=== PATIENT | female | born 1955 | race Caucasian/White ===

== ENCOUNTER → 2021-12-05 | Outpatient (CLI) | payer OTHER ==
--- NOTE | 2021-12-05 13:05 | MM ---
Reason for Exam: Screening (asymptomatic). Patient History: Menarche at age 10. Patient has no children. Postmenopausal. Risk Values: Sera 5 year model risk: 1.9%. NCI Lifetime model risk: 6.2%. Prior Study Comparison: No prior studies available for comparison. Tissue Density: The breast tissue is heterogeneously dense. This may lower the sensitivity of mammography. Findings: Analyzed By CAD. Limited examination due to patient positioning. Calcifications demonstrated within the posterior inferior right breast and inferior medial left breast x2. No suspicious mass within either breast. Overall Assessment: Incomplete: need additional imaging evaluation, BI-RAD 0 Management: Diagnostic Mammogram of both breasts. A clinical breast exam by your physician is recommended on an annual basis and results should be correlated with mammographic findings. [facility] will attempt to contact patient to return for supplemental views and ultrasound if indicated. Electronically signed and approved by: Ace Jj D.O.
--- NOTE | 2021-12-05 13:31 | BD ---
EXAMINATION TYPE: Axial Bone Density DATE OF EXAM: 12/05/2021 COMPARISON: PT IS NEW TO [facility] CLINICAL HISTORY: 66 years year old Female. ICD-10 CODE: M81.0 Osteoporosis Height: 63 Weight: 160 FRAX RISK QUESTIONS: Family History (Parent hip fracture): UNSURE History of Fracture in Adulthood: UNSURE...FALL HAS HAD OPERATION. RISK FACTORS HISTORY OF: Family History of Osteoporosis: UNSURE....POOR HISTORIAN Active: IN WHEEL/CHAIR..NO Postmenopausal woman: 48 Take estrogen and/or progesterone medications: IN PAST ...NONE NOW Lost more than 2 inches in height since high school: UNSURE Frequent falls: YES Poor Health: FAIR Hyperparathyroidism: NO Adrenal Insufficiency: NO MEDICATIONS: Additional Medications: GABAPENTEN, PAIN PILLS, BP MEDS, REFLUX MEDS, BLOOD THINNERS, Additional History: INCONTINENT, UNSTEADY, FALL, COGNITIVE DECLINE EXAM MEASUREMENTS: Bone mineral densitometry was performed using the [employer] System. Bone mineral density as measured about the Lumbar spine is: ----- L1-L4(G/cm2): 1.592 T Score Values are as follows: ----- L1: 3.5 ----- L2: 4.3 ----- L3: 2.6 ----- L4: 3.9 ----- L1-L4: 3.4 Bone mineral density NEW TO [facility] Bone mineral density about the R hip (g/cm2): 0.996 Bone mineral density about the L hip (g/cm2): 0.983 T Score values are as follows: -----R Neck: -0.9 -----L Neck: -0.6 -----R Total: -0.1 -----L Total: -0.2 Bone mineral density NEW TO [facility] FRAX%s: The graph provided illustrates a 8.3% chance for a major osteoporotic fx and a 1.2% chance fo r the hips probability for fx in 10 years time. IMPRESSION: Normal (Values between +1 and -1 indicate normal bone mass). Consider repeating this study in 5 year s or sooner if there is some new clinical indication. NOTE: T-SCORE=SD OF THE YOUNG ADULT MEAN.
--- NOTE | 2021-12-05 14:22 | MM ---
Reason for Exam: Additional evaluation requested from abnormal screening. Patient History: Menarche at age 10. Patient has no children. Postmenopausal. Risk Values: Sera 5 year model risk: 1.9%. NCI Lifetime model risk: 6.2%. Tissue Density: The breast tissue is heterogeneously dense. This may lower the sensitivity of mammography. Findings: Analyzed By CAD. The calcifications demonstrated within the posterior right breast correspond to skin calcifications and benign. Grouped fine pleomorphic calcifications within the left breast posterior depth lower inner quadrant. Additional calcifications within the left breast middle depth with round morphology and likely benign. Left breast ultrasound in antiradial and radial scan of the 6:00 position 9 cm from the nipple demonstrates only a few calcifications. No solid mass identified. Overall Assessment: Suspicious, BI-RAD 4 Management: Stereotactic Core Biopsy of the left breast. A clinical breast exam by your physician is recommended on an annual basis and results should be correlated with mammographic findings. This exam should not preclude additional follow-up of suspicious palpable abnormalities. Results were given to the patient verbally at the time of exam. Electronically signed and approved by: Ace Jj D.O.
--- NOTE | 2021-12-05 14:55 | USB ---
Reason for Exam: Additional evaluation requested from abnormal screening. Patient History: Menarche at age 10. Patient has no children. Postmenopausal. Risk Values: Sera 5 year model risk: 1.9%. NCI Lifetime model risk: 6.2%. Technique: Method: Targeted. Electronically signed and approved by: Ace Jj D.O.
== END | disposition home or self-care (01) ==
LOC: EEVIPCON 11:40 → RADMAMWWP 11:46
PROVIDERS: ATTEND Family Medicine
DX: Z12.31 Encounter for screening mammogram for malignant neoplasm of breast (principal); M81.0 Age-related osteoporosis without current pathological fracture; Z78.0 Asymptomatic menopausal state
CPT/HCPCS: 77062; 77066; 77067; 77080

== ENCOUNTER → 2021-12-06 | Outpatient (CLI) | payer OTHER ==
--- NOTE | 2021-12-06 16:39 | CTL ---
EXAMINATION TYPE: CT Low Dose Lung DATE OF EXAM ORDERED: 12/06/2021 HISTORY: Personal tobacco use. Lung cancer screening CT DLP: 96.[address] CTDI: 3.3 mGy Automated exposure control for dose reduction was used. SCREENING VISIT: Initial COMPARISON: None TECHNIQUE: Low dose computed tomography scan was performed through the chest at 1 mm thick sections a nd reconstructed images in the coronal plane at [address] DIAGNOSTIC QUALITY: Satisfactory FINDINGS: LUNG NODULES: Present, detailed below: 1. There is a 0.4 cm nodule in the periphery of the posterior lateral left upper lung field, series 4 image 58. LUNGS: COPD: Severity: None Fibrosis: Severity: None Lymph nodes: None Other findings: None RIGHT PLEURAL SPACE: Effusion: None Calcification: None Thickening: None Pneumothorax: None LEFT PLEURAL SPACE: Effusion: None Calcification: None Thickening: None Pneumothorax: None HEART: Heart Size: Normal Coronary calcification: Very minimal Pericardial effusion: None OTHER FINDINGS: Upper abdomen: Normal Bony thorax: Normal Supraclavicular region: Normal Other: Ascending thoracic aorta at the level the main pulmonary artery measures 4.4 cm. The main pul monary artery at the bifurcation measures 3.2 cm. IMPRESSION: Punctate nodule left upper lung field. FOLLOW UP CT CHEST RECOMMENDATION: Low-dose CT chest one year. CT LUNG RAD: Lung-Rad 2 Benign Appearance or Behavior
== END | disposition home or self-care (01) ==
LOC: RADCTMAIN 13:13
PROVIDERS: ATTEND Family Medicine
DX: Z12.2 Encounter for screening for malignant neoplasm of respiratory organs (principal); R91.1 Solitary pulmonary nodule; Z87.891 Personal history of nicotine dependence
CPT/HCPCS: 71271

== ENCOUNTER → 2022-04-24 | Outpatient (CLI) | payer OTHER ==
--- NOTE | 2022-04-24 14:09 | CT ---
EXAMINATION TYPE: CT abdomen pelvis w con DATE OF EXAM: 04/24/2022 COMPARISON: None HISTORY: Nausea with vomiting. Patient poor historian. CT DLP: 1551.1 mGycm Automated exposure control for dose reduction was used. CONTRAST: CT scan of the abdomen pelvis is performed with IV Contrast, patient injected with 70ml mL of Isovue 300. FINDINGS- exam limited by artifact. LUNG BASES- heart size is prominent. Calcification in the aortic valve are present. LIVER/GB- factory limits assessment of liver. Postcholecystectomy changes seen. PANCREAS- No gross abnormality is seen. SPLEEN- No gross abnormality is seen. ADRENALS- No gross abnormality is seen. KIDNEYS/BLADDER- no hydronephrosis nephrolithiasis or renal mass. BOWEL- nonspecific as there are no obstruction. There is mild thickening of the wall of the distal r ight colon cecum. LYMPH NODES- No greater than 1cm abdominal or pelvic lymph nodes are appreciated. OSSEOUS STRUCTURES- hypertrophic and degenerative changes of the spine. Arthropathy of the hips. OTHER- there is calcification in the uterine body which may be on the basis of fibroid. IMPRESSION- 1. There is mild thickening of the wall of the distal right colon and cecum which could be on the bas is of incomplete distention rather than a mild colitis or mucosal lesion. No surrounding inflammatory changes. Correlate with colonoscopy as clinically warranted.
== END | disposition home or self-care (01) ==
LOC: RADCTMAIN 11:29
PROVIDERS: ATTEND Emergency Medicine
DX: K63.89 Other specified diseases of intestine (principal); R11.2 Nausea with vomiting, unspecified
CPT/HCPCS: 82565; 84520; 74177; 36415; Q9967 ×2

== ENCOUNTER → 2022-07-02 | Outpatient (CLI) | payer OTHER ==
--- NOTE | 2022-07-02 13:57 | MM ---
Reason for Exam: Follow-up at short interval from prior study. Last screening mammogram was performed 7 month(s) ago. Patient History: Menarche at age 10. Patient has no children. Postmenopausal. Maternal grandmother had breast cancer. Risk Values: Sera 5 year model risk: 1.9%. NCI Lifetime model risk: 5.9%. Tissue Density: The breast tissue is heterogeneously dense. This may lower the sensitivity of mammography. Findings: Analyzed By CAD. Stable benign calcifications noted. Prior stereotactic core biopsy seen with microclip marker is in place. No evidence for mass or distortion. Overall Assessment: Benign, BI-RAD 2 Management: Screening Mammogram of both breasts in 1 year. A clinical breast exam by your physician is recommended on an annual basis and results should be correlated with mammographic findings. This exam should not preclude additional follow-up of suspicious palpable abnormalities. Results were given to the patient verbally at the time of exam. Electronically signed and approved by: Georgi Torres M.D. Radiologis
== END | disposition home or self-care (01) ==
LOC: RADMAMWWP 13:14
PROVIDERS: ATTEND Emergency Medicine
DX: R92.1 Mammographic calcification found on diagnostic imaging of breast (principal); Z78.0 Asymptomatic menopausal state; Z80.3 Family history of malignant neoplasm of breast
CPT/HCPCS: 77062; 77066

== ENCOUNTER 2023-03-07 20:18 | Emergency (ER) | payer OTHER ==
[2023-03-07 20:56] VITALS: RESP 18
--- NOTE | 2023-03-07 21:29 | ED ---
General Adult HPI - General Source: patient, RN notes reviewed Mode of arrival: ambulatory Limitations: no limitations <Patti Peralta - Last Filed: 03/07/23 21:37> - General Source: patient, RN notes reviewed Mode of arrival: wheelchair Limitations: no limitations <Velvet Champion - Last Filed: 03/11/23 19:50> - General Chief complaint: Recheck/Abnormal Lab/Rx Stated complaint: Bilateral leg pain Time Seen by Provider: 03/07/23 21:37 - History of Present Illness Initial comments: 68 -year-old female presents to the emergency department for chief complaint of bilateral lower extremity pain. This seems to be a chronic issue for her. She states that this has come back 3 days ago. Patient is worse with walking. (Patti Peralta) This is a 68-year-old female who presents to the emergency department for bilateral lower extremity pain. States that this is a chronic and ongoing issue for her, however it is gotten much worse over the last 3 days. Describes the pain as sharp pinpricks. The patient states that she is largely nonambulatory. This has been an issue for almost 2 years since she had a hernia surgery. She is taking Carver for her pain, which has not been effective over the last few days. Denies any injuries. (Velvet Champion) - Related Data Allergies Allergy/AdvReac Type Severity Reaction Status Date / Time No Known Allergies Allergy Verified 03/07/23 20:55 Review of Systems ROS Other: All systems not noted in ROS Statement are negative. <Patti Peralta - Last Filed: 03/07/23 21:37> ROS Other: All systems not noted in ROS Statement are negative. <Velvet Chapmion - Last Filed: 03/11/23 19:50> ROS Statement: Those systems with pertinent positive or pertinent negative responses have been documented in the HPI. Past Medical History Past Medical History: Hypertension History of Any Multi-Drug Resistant Organisms: None Reported Past Surgical History: Appendectomy, Cholecystectomy, Hernia Repair Additional Past Surgical History / Comment(s): neck surgery Past Psychological History: No Psychological Hx Reported Smoking Status: Never smoker Past Alcohol Use History: None Reported Past Drug Use History: None Reported <Patti Peralta - Last Filed: 03/07/23 21:37> General Exam Limitations: no limitations <Patti Peralta - Last Filed: 03/07/23 21:37> Limitations: no limitations General appearance: alert, in no apparent distress Head exam: Present: atraumatic, normocephalic, normal inspection Respiratory exam: Present: normal lung sounds bilaterally. Absent: respiratory distress, wheezes, rales, rhonchi, stridor Cardiovascular Exam: Present: regular rate, normal rhythm, normal heart sounds. Absent: systolic murmur, diastolic murmur, rubs, gallop, clicks Extremities exam: Present: other (The bilateral lower extremities beginning at around the mid tib-fib and spreading distally are cool with nonpalpable pulses. Delayed capillary refill. Decreased sensation bilaterally.) Neurological exam: Present: alert, oriented X3, CN II-XII intact Psychiatric exam: Present: normal affect, normal mood Skin exam: Present: dry, intact, normal color. Absent: rash <Velvet Champion - Last Filed: 03/11/23 19:50> - General Exam Comments Initial Comments: Visual Physical Exam Vital signs reviewed General: Well-appearing, nontoxic, no acute distress. Head: Normocephalic, atraumatic Eyes: PERRLA, EOMI ENT: Airway patent Chest: Nonlabored breathing Skin: No visual rash, normal skin tone Neuro: Alert and oriented 3 Musculoskeletal: No gross abnormalities (Patti Peralta) Course Vital Signs 03/07/23 03/08/23 03/08/23 20:49 01:55 05:27 Temperature 97.5 F L 97.9 F Pulse Rate 91 80 60 Respiratory 18 18 18 Rate Blood Pressure 149/62 135/78 111/72 O2 Sat by Pulse 96 97 97 Oximetry Medical Decision Making <Patti Peralta - Last Filed: 03/07/23 21:37> - Lab Data Result diagrams: 03/07/23 22:11 03/07/23 22:11 - Radiology Data Radiology results: report reviewed, image reviewed <Velvet Champion - Last Filed: 03/11/23 19:50> - Medical Decision Making Quick note preformed by Patti Peralta PA-C (Patti Peralta) This is a 68-year-old female who presents to the emergency department for bilateral lower extremity pain. Was pt. sent in by a medical professional or institution? @ -No Did you speak to anyone other than the patient for history? @ -No Did you review nursing and triage notes? @ -I disagree with the aspect of the pain being all over. Patient states that it is in her legs. Were old charts reviewed? @ -No Differential Diagnosis? @ -Differential Leg Pain: Leg fracture, leg sprain, DVT, PVD, arterial insufficiency, iliac artery aneurysm, cellulitis, compartment syndrome, tendinopathy, nerve entrapment, piriformis syndrome, osteoarthritis, rhabdomyolysis, myositis, cramping from an electrolyte imbalance, this is not meant to be an all inclusive list. EKG interpreted by me (3pts min.)? @ -Not obtained X-rays interpreted by me (1pt min.)? @ -Not obtained CT interpreted by me (1pt min.)? @ -CTA of the bilateral LE obtained. My interpretation identifies no occlusion to the iliac, femoral, or popliteal arteries. U/S interpreted by me (1pt. min.)? @ -Not obtained What testing was considered but not performed? (CT, X-rays, U/S, labs)? Why? @ -None What meds were considered but not given? Why? @ -None Did you discuss the management of the patient with other professionals? @ -Yes, Dr. Montes, who advised that the patient could follow up outpatient and that this is likely all chronic. Did you reconcile home meds? @ -No Was smoking cessation discussed for >3mins.? @ -No Was critical care preformed (if so, how long)? @ -No Were there social determinants of health that impacted care today? How? (Homelessness, low income, unemployed, alcoholism, drug addiction, transportation, low edu. Level, literacy, decrease access to med. care, intermediate, rehab)? @ -No Was there de-escalation of care discussed even if they declined? (Discuss DNR or withdrawal of care, Hospice)? @ -No What co-morbidities impacted this encounter? (DM, HTN, Smoking, COPD, CAD, Cancer, CVA, Hep., AIDS, mental health diagnosis, sleep apnea, morbid obesity)? @ -HTN Was patient admitted / discharged? @ -Discharged. Lab work obtained and found to be unremarkable. Patient's symptoms were well controlled in the emergency department. On exam the distal most aspect of the bilateral lower extremities and her feet were cooler than the rest of her extremities and pulses could not be found on palpation or with the doppler. CT angiogram of the bilateral lower extremities was obtained. This identified symmetric decreased opacification of the bilateral lower extremities past the mid calf which likely relates to phase of contrast. 3 vessel occlusive thrombus is possible, though less likely. They recommended repeat imaging with and without contrast with delayed imaging. Case discussed with Dr. Montes, vascular surgery. She advised that this is likely all chronic in nature and the patient can follow-up on an outpatient basis. This was discussed with the patient who expresses understanding, and she was discharged home in stable condition. Undiagnosed new problem with uncertain prognosis? @ -None Drug Therapy requiring intensive monitoring for toxicity (Heparin, Nitro, Insulin, Cardizem)? @ -None Were any procedures done? @ -None Diagnosis/symptom? @ -Bilateral LE pain, PAD Acute, or Chronic, or Acute on Chronic? @ -Chronic Uncomplicated (without systemic symptoms) or Complicated (systemic symptoms)? @ -Uncomplicated Side effects of treatment? @ -None Exacerbation, Progression, or Severe Exacerbation] @ -Exacerbation Poses a threat to life or bodily function? @ -This will depend on how this progresses. Return precautions reviewed in depth, the patient is instructed to return to the emergency department with any new, worsening, or concerning symptoms. Patient verbalized understanding. This case was discussed in detail with the attending ED physician, Dr. Demarco. Presentation, findings, and treatment plan discussed in detail as well. (Velvet Champion) - Lab Data Lab Results 03/07/23 03/07/23 03/07/23 Range/Units 22:11 22:11 22:11 WBC 8.3 (3.8-10.6) k/uL RBC 4.69 (3.80-5.40) m/uL Hgb 12.8 (11.4-16.0) gm/dL Hct 40.8 (34.0-46.0) % MCV 87.0 (80.0-100.0) fL MCH 27.2 (25.0-35.0) pg MCHC 31.3 (31.0-37.0) g/dL RDW 13.9 (11.5-15.5) % Plt Count 231 (150-450) k/uL MPV 7.7 Neutrophils % 57 % Lymphocytes % 33 % Monocytes % 6 % Eosinophils % 2 % Basophils % 0 % Neutrophils # 4.7 (1.3-7.7) k/uL Lymphocytes # 2.8 (1.0-4.8) k/uL Monocytes # 0.5 (0-1.0) k/uL Eosinophils # 0.2 (0-0.7) k/uL Basophils # 0.0 (0-0.2) k/uL Hypochromasia Slight Sodium 137 (137-145) mmol/L Potassium 4.2 (3.5-5.1) mmol/L Chloride 107 (98-107) mmol/L Carbon Dioxide 20 L (22-30) mmol/L Anion Gap 10 mmol/L BUN 26 H (7-17) mg/dL Creatinine 0.70 (0.52-1.04) mg/dL Est GFR (CKD-EPI)AfAm >90 (>60 ml/min/1.73 sqM) Est GFR (CKD-EPI)NonAf 88 (>60 ml/min/1.73 sqM) Glucose 96 (74-99) mg/dL Plasma Lactic Acid Harjinder 1.1 (0.7-2.0) mmol/L Calcium 8.7 (8.4-10.2) mg/dL Total Bilirubin 0.4 (0.2-1.3) mg/dL AST 19 (14-36) U/L ALT 14 (4-34) U/L Alkaline Phosphatase 91 (38-126) U/L Creatine Kinase 31 (30-135) U/L C-Reactive Protein 1.4 H (<1.0) mg/dL Total Protein 6.3 (6.3-8.2) g/dL Albumin 3.6 (3.5-5.0) g/dL Influenza Type A (PCR) (Not Detectd) Influenza Type B (PCR) (Not Detectd) RSV (PCR) (Not Detectd) SARS-CoV-2 (PCR) (Not Detectd) 03/07/23 Range/Units 22:11 WBC (3.8-10.6) k/uL RBC (3.80-5.40) m/uL Hgb (11.4-16.0) gm/dL Hct (34.0-46.0) % MCV (80.0-100.0) fL MCH (25.0-35.0) pg MCHC (31.0-37.0) g/dL RDW (11.5-15.5) % Plt Count (150-450) k/uL MPV Neutrophils % % Lymphocytes % % Monocytes % % Eosinophils % % Basophils % % Neutrophils # (1.3-7.7) k/uL Lymphocytes # (1.0-4.8) k/uL Monocytes # (0-1.0) k/uL Eosinophils # (0-0.7) k/uL Basophils # (0-0.2) k/uL Hypochromasia Sodium (137-145) mmol/L Potassium (3.5-5.1) mmol/L Chloride (98-107) mmol/L Carbon Dioxide (22-30) mmol/L Anion Gap mmol/L BUN (7-17) mg/dL Creatinine (0.52-1.04) mg/dL Est GFR (CKD-EPI)AfAm (>60 ml/min/1.73 sqM) Est GFR (CKD-EPI)NonAf (>60 ml/min/1.73 sqM) Glucose (74-99) mg/dL Plasma Lactic Acid Harjinder (0.7-2.0) mmol/L Calcium (8.4-10.2) mg/dL Total Bilirubin (0.2-1.3) mg/dL AST (14-36) U/L ALT (4-34) U/L Alkaline Phosphatase (38-126) U/L Creatine Kinase (30-135) U/L C-Reactive Protein (<1.0) mg/dL Total Protein (6.3-8.2) g/dL Albumin (3.5-5.0) g/dL Influenza Type A (PCR) Not Detected (Not Detectd) Influenza Type B (PCR) Not Detected (Not Detectd) RSV (PCR) Not Detected (Not Detectd) SARS-CoV-2 (PCR) Not Detected (Not Detectd) Disposition <Patti Peralta - Last Filed: 03/07/23 21:37> Is patient prescribed a controlled substance at d/c from ED?: No <Velvet Champion - Last Filed: 03/11/23 19:50> Clinical Impression: Bilateral leg pain, PAD (peripheral artery disease) Disposition: HOME SELF-CARE Instructions (If sedation given, give patient instructions): Peripheral Artery Disease (ED) Additional Instructions: Return to the emergency department with any new, worsening, or concerning symptoms. Contact Dr. Montes, vascular surgery, as listed below this morning for a follow up appointment. Referrals: Jatinder Garcia MD [Primary Care Provider] - 1-2 days Samantha Montes DO [STAFF PHYSICIAN] - 1-2 days
[2023-03-07 23:15] LABS: Basophils % (A) 0 %; Eosinophils # (A) 0.2 k/uL (0-0.7); Eosinophils % (A) 2 %; HCT 40.8 % (34.0-46.0); HGB 12.8 gm/dL (11.4-16.0); Hypochromasia Slight; Lymphocytes # (A) 2.8 k/uL (1.0-4.8); Lymphocytes % (A) 33 %; MCH 27.2 pg (25.0-35.0); MCHC 31.3 g/dL (31.0-37.0); Mean Platelet Volume 7.7; Monocytes # (A) 0.5 k/uL (0-1.0); Monocytes % (A) 6 %; Neutrophils # (A) 4.7 k/uL (1.3-7.7); Neutrophils % (A) 57 %; Platelet Count 231 k/uL (150-450); RBC 4.69 m/uL (3.80-5.40); RDW 13.9 % (11.5-15.5); WBC 8.3 k/uL (3.8-10.6)
[2023-03-07 23:27] LABS: ALT 14 U/L (4-34); AST 19 U/L (14-36); African American GFR (CKD) >90 (>60 ml/min/1.73 sqM); Albumin 3.6 g/dL (3.5-5.0); Alkaline Phosphatase 91 U/L (38-126); Anion Gap 10 mmol/L; Blood Urea Nitrogen 26 mg/dL (7-17); C Reactive Protein 1.4 mg/dL (<1.0); Calcium 8.7 mg/dL (8.4-10.2); Carbon Dioxide 20 mmol/L (22-30); Chloride 107 mmol/L (98-107); Creatine Kinase 31 U/L (30-135); Glucose 96 mg/dL (74-99); Non-African American GFR(CKD) 88 (>60 ml/min/1.73 sqM); Potassium 4.2 mmol/L (3.5-5.1); Sodium 137 mmol/L (137-145); Total Bilirubin 0.4 mg/dL (0.2-1.3); Total Protein 6.3 g/dL (6.3-8.2)
[2023-03-08] MEDS ORDERED: MORPHINE SULFATE 4 MG/ML SYRINGE IVP STA (01:59)
[2023-03-08] MEDS ORDERED: KETOROLAC 15 MG/ML 1 ML VIAL IVP STA (01:59)
--- NOTE | 2023-03-08 04:29 | CT ---
EXAM: CT Angiography Pelvis With Runoff to the Bilateral Lower Extremities With Intravenous Contrast CLINICAL HISTORY: ITS.REASON CT Reason: Cold and pulseless feet bilaterally TECHNIQUE: Axial computed tomographic angiography images of the pelvis and bilateral lower extremities with intravenous contrast. CTDI is 52.9 mGy and DLP is 1437 mGy-cm. This CT exam was performed using one or more of the following dose reduction techniques: automated exposure control, adjustment of the mA and/or kV according to patient size, and/or use of iterative reconstruction technique. MIP reconstructed images were created and reviewed. COMPARISON: No relevant prior studies available. FINDINGS: VASCULATURE: Right iliac arteries: No acute findings. No occlusion or significant stenosis. Right femoral/popliteal arteries: No acute findings. No occlusion or significant stenosis. Right calf/foot arteries: Not visualized past the mid calf. Left iliac arteries: No acute findings. No occlusion or significant stenosis. Left femoral/popliteal arteries: No acute findings. No occlusion or significant stenosis. Left calf/foot arteries: Not visualized past the mid calf. PELVIS: Bowel: Unremarkable. No obstruction. No mucosal thickening. Appendix: No findings to suggest acute appendicitis. Bladder: Diffuse bladder wall thickening with adjacent stranding. Findings can be seen with cystitis. Consider correlation with laboratory values. Reproductive: Multiple calcified fibroids within the uterus. PELVIS and LOWER EXTREMITIES: Intraperitoneal space: Unremarkable. No significant fluid collection. No free air. Bones/joints: Degenerative changes in the spine. No acute fracture. No dislocation. Soft tissues: Unremarkable. Lymph nodes: Unremarkable. No enlarged lymph nodes. IMPRESSION: 1. Diffuse bladder wall thickening with adjacent stranding. Findings can be seen with cystitis. Consider correlation with laboratory values. 2. Symmetric decreased opacification of the bilateral lower extremities past the mid calf which likely relates to phase of contrast. Three- vessel occlusive thrombus is possible, though less likely. Recommend repeat imaging with and without contrast with delayed imaging.
[2023-03-08] MEDS ORDERED: HYDROmorphone 1 MG/ML 1 ML SYRINGE IVP STA (04:56)
[2023-03-08 05:49] VITALS: BP 111/72; PULSE 60; TEMP 97.9
== END 2023-03-08 07:07 | disposition home or self-care (01) ==
LOC: EC 20:18
DX: M79.605 Pain in left leg (principal); M79.604 Pain in right leg; I73.9 Peripheral vascular disease, unspecified; I10 Essential (primary) hypertension; Z20.822 Contact with and (suspected) exposure to COVID-19
CPT/HCPCS: 36415; 80053; 82550; 83605; 85025; 86140; 87636; 73706; 99284; 96374; 96375 ×2; J2270; J1170; J1885; Q9967

== ENCOUNTER 2023-04-02 22:47 | Emergency (ER) | payer OTHER ==
[2023-04-02 23:12] VITALS: TEMP 97.5
[2023-04-03 00:50] LABS: Basophils % (A) 0 %; Eosinophils # (A) 0.2 k/uL (0-0.7); Eosinophils % (A) 3 %; HCT 40.7 % (34.0-46.0); HGB 12.5 gm/dL (11.4-16.0); Hypochromasia Slight; Lymphocytes # (A) 2.2 k/uL (1.0-4.8); Lymphocytes % (A) 29 %; MCH 26.9 pg (25.0-35.0); MCHC 30.7 g/dL (31.0-37.0); MCV 87.6 fL (80.0-100.0); Mean Platelet Volume 7.2; Monocytes # (A) 0.4 k/uL (0-1.0); Monocytes % (A) 5 %; Neutrophils # (A) 4.7 k/uL (1.3-7.7); Neutrophils % (A) 62 %; Platelet Count 233 k/uL (150-450); RBC 4.64 m/uL (3.80-5.40); RDW 14.1 % (11.5-15.5); WBC 7.6 k/uL (3.8-10.6)
[2023-04-03 01:07] LABS: ALT 12 U/L (4-34); AST 18 U/L (14-36); African American GFR (CKD) >90 (>60 ml/min/1.73 sqM); Albumin 3.8 g/dL (3.5-5.0); Alkaline Phosphatase 122 U/L (38-126); Anion Gap 9 mmol/L; Blood Urea Nitrogen 18 mg/dL (7-17); Calcium 8.8 mg/dL (8.4-10.2); Carbon Dioxide 23 mmol/L (22-30); Chloride 106 mmol/L (98-107); Glucose 98 mg/dL (74-99); Non-African American GFR(CKD) 78 (>60 ml/min/1.73 sqM); Potassium 4.1 mmol/L (3.5-5.1); Sodium 138 mmol/L (137-145); Total Bilirubin 0.5 mg/dL (0.2-1.3); Total Protein 6.5 g/dL (6.3-8.2)
[2023-04-03 01:16] LABS: NT-Pro-B-Type Natriuretic Pept 2280 pg/mL
[2023-04-03] MEDS ORDERED: FUROSEMIDE 40 MG TAB PO STA (05:36)
--- NOTE | 2023-04-03 05:47 | ED ---
Extremity Problem HPI - General Chief complaint: Extremity Problem,Nontraumatic Stated complaint: leg swelling leg pain Time Seen by Provider: 04/03/23 05:28 Source: patient Mode of arrival: ambulatory Limitations: no limitations - History of Present Illness Initial comments: Reports that she was advised to stop taking her Lasix due to it being hard on h er kidney so she hasn't taken it she's noted that her legs are more swollen than usual. No signs of chest pain palpitations or shortness of breath MD Complaint: extremity pain, extremity swelling -: days(s) Location: bilateral lower extremity History of Same: Yes Radiation: none Quality: aching Consistency: constant Associated Symptoms: denies other symptoms - Related Data Previous Rx's Medication Instructions Recorded Furosemide [Lasix] 20 mg PO DAILY #7 tablet 04/03/23 Allergies Allergy/AdvReac Type Severity Reaction Status Date / Time Penicillins AdvReac Unknown Verified 04/02/23 23:06 Childhood Review of Systems ROS Statement: Those systems with pertinent positive or pertinent negative responses have been documented in the HPI. ROS Other: All systems not noted in ROS Statement are negative. Past Medical History Past Medical History: Heart Failure, Hypertension History of Any Multi-Drug Resistant Organisms: None Reported Past Surgical History: Appendectomy, Cholecystectomy, Hernia Repair Additional Past Surgical History / Comment(s): neck surgery Past Psychological History: No Psychological Hx Reported Smoking Status: Never smoker Past Alcohol Use History: None Reported Past Drug Use History: None Reported General Exam Limitations: no limitations General appearance: alert Head exam: Present: atraumatic, normocephalic Eye exam: Present: PERRL ENT exam: Present: normal exam, other (edentulous) Respiratory exam: Absent: respiratory distress Cardiovascular Exam: Present: regular rate GI/Abdominal exam: Present: soft. Absent: distended Rectal exam: Present: deferred Extremities exam: Present: full ROM, pedal edema (2+ bilaterally) Neurological exam: Present: alert, oriented X3 Psychiatric exam: Present: normal affect Skin exam: Present: warm, dry, intact Course Vital Signs 04/02/23 04/03/23 23:03 05:16 Temperature 97.5 F L Pulse Rate 69 66 Respiratory 18 16 Rate Blood Pressure 143/85 147/90 O2 Sat by Pulse 97 100 Oximetry Medical Decision Making - Medical Decision Making Was pt. sent in by a medical professional or institution (Dr., PA, REGIONAL MAINTENANCE MANAGER, urgent care, hospital, or snf...) When possible be specific @ -No Did you speak to anyone other than the patient for history (EMS, parent, family, police, friend...)? What history was obtained from this source @ -No Did you review nursing and triage notes (agree or disagree)? Why? @ -I reviewed and agree with nursing and triage notes Were old charts reviewed (outside hosp., previous admission, EMS record, old EKG, old radiological studies, urgent care reports/EKG's, snf records)? Report findings @ Previous visits reviewed Differential Diagnosis (chest pain, altered mental status, abdominal pain women, abdominal pain men, vaginal bleeding, weakness, fever, dyspnea, syncope, headache, dizziness, GI bleed, back pain, seizure, CVA, palpatations, mental health)? @ CHF, dependent edema EKG interpreted by me (3pts min.). @ -As above X-rays interpreted by me (1pt min.). @ -None done CT interpreted by me (1pt min.). @ -None done U/S interpreted by me (1pt. min.). @ -None done What testing was considered but not performed or refused? (CT, X-rays, U/S, labs)? Why? @ -None What meds were considered but not given or refused? Why? @ -None Did you discuss the management of the patient with other professionals (professionals i.e. MELINDA Bender, REGIONAL MAINTENANCE MANAGER, lab, RT, psych nurse, social service director, senior center director, teacher, classification officer, employment case manager)? Give summary @ -No Was smoking cessation discussed for >3mins.? @ -No Was critical care preformed (if so, how long)? @ -No Were there social determinants of health that impacted care today? How? (Homelessness, low income, unemployed, alcoholism, drug addiction, transportation, low edu. Level, literacy, decrease access to med. care, residential, rehab)? @ -No Was there de-escalation of care discussed even if they declined (Discuss DNR or withdrawal of care, Hospice)? DNR status @ -No What co-morbidities impacted this encounter? (DM, HTN, Smoking, COPD, CAD, Cancer, CVA, ARF, Chemo, Hep., AIDS, mental health diagnosis, sleep apnea, morbid obesity)? @ -None Was patient admitted / discharged? Hospital course, mention meds given and route, prescriptions, significant lab abnormalities, going to OR and other pertinent info. @ -Discharge Patient with normal vital signs, bilateral lower extremity edema, no signs of respiratory compromise from CHF Will prescribe 1 week of Lasix and out patient follow up Undiagnosed new problem with uncertain prognosis? @ -No Drug Therapy requiring intensive monitoring for toxicity (Heparin, Nitro, Insulin, Cardizem)? @ -No Were any procedures done? @ -No Diagnosis/symptom? @ -Lower Extremity edmea Acute, or Chronic, or Acute on Chronic? @ -Acute Uncomplicated (without systemic symptoms) or Complicated (systemic symptoms)? @ -Uncomplicated Side effects of treatment? @ -No Exacerbation, Progression, or Severe Exacerbation? @ -No Poses a threat to life or bodily function? How? (Chest pain, USA, NH, pneumonia, PE, COPD, DKA, ARF, appy, cholecystitis, CVA, Diverticulitis, Homicidal, Suicidal, threat to staff... and all critical care pts) @ -No - Lab Data Result diagrams: 04/03/23 00:42 04/03/23 00:42 Lab Results 04/03/23 04/03/23 Range/Units 00:42 00:42 WBC 7.6 (3.8-10.6) k/uL RBC 4.64 (3.80-5.40) m/uL Hgb 12.5 (11.4-16.0) gm/dL Hct 40.7 (34.0-46.0) % MCV 87.6 (80.0-100.0) fL MCH 26.9 (25.0-35.0) pg MCHC 30.7 L (31.0-37.0) g/dL RDW 14.1 (11.5-15.5) % Plt Count 233 (150-450) k/uL MPV 7.2 Neutrophils % 62 % Lymphocytes % 29 % Monocytes % 5 % Eosinophils % 3 % Basophils % 0 % Neutrophils # 4.7 (1.3-7.7) k/uL Lymphocytes # 2.2 (1.0-4.8) k/uL Monocytes # 0.4 (0-1.0) k/uL Eosinophils # 0.2 (0-0.7) k/uL Basophils # 0.0 (0-0.2) k/uL Hypochromasia Slight Sodium 138 (137-145) mmol/L Potassium 4.1 (3.5-5.1) mmol/L Chloride 106 (98-107) mmol/L Carbon Dioxide 23 (22-30) mmol/L Anion Gap 9 mmol/L BUN 18 H (7-17) mg/dL Creatinine 0.77 (0.52-1.04) mg/dL Est GFR (CKD-EPI)AfAm >90 (>60 ml/min/1.73 sqM) Est GFR (CKD-EPI)NonAf 78 (>60 ml/min/1.73 sqM) Glucose 98 (74-99) mg/dL Calcium 8.8 (8.4-10.2) mg/dL Total Bilirubin 0.5 (0.2-1.3) mg/dL AST 18 (14-36) U/L ALT 12 (4-34) U/L Alkaline Phosphatase 122 (38-126) U/L NT-Pro-B Natriuret Pep 2280 pg/mL Total Protein 6.5 (6.3-8.2) g/dL Albumin 3.8 (3.5-5.0) g/dL Disposition Clinical Impression: Lower extremity edema Disposition: HOME SELF-CARE Condition: Stable Is patient prescribed a controlled substance at d/c from ED?: No Referrals: Jatinder Garcia MD [Primary Care Provider] - 1-2 days
[2023-04-03] MEDS ORDERED: HYDROcodone/APAP 5-325MG 1 EACH TAB PO STA (05:53)
[2023-04-03 06:44] VITALS: BP 160/74; PULSE 61; RESP 18
== END 2023-04-03 07:19 | disposition home or self-care (01) ==
LOC: EC 22:47
DX: R60.0 Localized edema (principal); I11.0 Hypertensive heart disease with heart failure; I50.9 Heart failure, unspecified; Z88.0 Allergy status to penicillin
CPT/HCPCS: 36415; 80053; 83880; 85025; 99284

== ENCOUNTER 2023-06-03 17:28 | Emergency (ER) | payer OTHER ==
[2023-06-03 18:05] VITALS: TEMP 97.8
[2023-06-03 18:28] LABS: Basophils % (A) 0 %; Eosinophils # (A) 0.5 k/uL (0-0.7); Eosinophils % (A) 5 %; HCT 38.8 % (34.0-46.0); HGB 12.4 gm/dL (11.4-16.0); Hypochromasia Slight; Lymphocytes # (A) 1.8 k/uL (1.0-4.8); Lymphocytes % (A) 21 %; MCH 27.9 pg (25.0-35.0); MCV 87.2 fL (80.0-100.0); Monocytes # (A) 0.5 k/uL (0-1.0); Monocytes % (A) 5 %; Neutrophils # (A) 5.7 k/uL (1.3-7.7); Neutrophils % (A) 67 %; Platelet Count 230 k/uL (150-450); RBC 4.45 m/uL (3.80-5.40); RDW 13.6 % (11.5-15.5); WBC 8.6 k/uL (3.8-10.6)
--- NOTE | 2023-06-03 18:55 | ED ---
Fall HPI - General Chief Complaint: Fall Stated Complaint: L SIDE PAIN/FALL Time Seen by Provider: 06/03/23 17:31 Source: EMS Mode of arrival: EMS - History of Present Illness Initial Comments: This patient is 68-year-old woman who fell from wheelchair. She states that she was getting out of the wheelchair van and the wheelchair lock block movement of her wheelchair and she tumbled from it landing on the ground. No loss consciousness but the patient does take blood thinners and does have headache. Denies neurologic symptoms. Denies other injuries. MD Complaint: fall -: minutes(s) Fall From: wheelchair When Fall Occurred: just prior to arrival Fall Witnessed: yes, by bystander Place Fall Occurred: street Loss of Consciousness: none Prolonged Down Time?: no Symptoms Prior to Fall: none Location: head, face Severity: moderate Quality: aching Context: tripped/slipped Associated Symptoms: denies - Related Data Previous Rx's Medication Instructions Recorded Furosemide [Lasix] 20 mg PO DAILY #7 tablet 04/03/23 Allergies Allergy/AdvReac Type Severity Reaction Status Date / Time Penicillins AdvReac Unknown Verified 06/03/23 17:38 Childhood Review of Systems ROS Statement: Those systems with pertinent positive or pertinent negative responses have been documented in the HPI. ROS Other: All systems not noted in ROS Statement are negative. Constitutional: Denies: fever, weakness Eyes: Denies: eye pain, vision change Respiratory: Denies: cough, dyspnea Cardiovascular: Denies: chest pain, syncope Gastrointestinal: Denies: abdominal pain, vomiting, diarrhea Musculoskeletal: Denies: back pain Skin: Denies: rash Neurological: Reports: headache. Denies: weakness, numbness, confusion Past Medical History Past Medical History: Heart Failure, Hypertension History of Any Multi-Drug Resistant Organisms: None Reported Past Surgical History: Appendectomy, Cholecystectomy, Hernia Repair Additional Past Surgical History / Comment(s): neck surgery Past Psychological History: No Psychological Hx Reported Smoking Status: Never smoker Past Alcohol Use History: None Reported Past Drug Use History: None Reported General Exam Limitations: no limitations Course Vital Signs 06/03/23 06/03/23 06/03/23 17:33 19:40 20:01 Temperature 97.8 F Pulse Rate 65 67 66 Respiratory 18 16 16 Rate Blood Pressure 171/92 133/56 130/66 O2 Sat by Pulse 98 98 99 Oximetry Medical Decision Making - Medical Decision Making The patient had CT scan of the brain and cervical spine that I interpreted as negative for acute bony injury or acute intracranial hemorrhage. Was pt. sent in by a medical professional or institution (MELINDA Bender, MINE SHIFTER, urgent care, hospital, or group home...) When possible be specific @ -[No] Did you speak to anyone other than the patient for history (EMS, parent, family, police, friend...)? What history was obtained from this source @ -[EMS gave history Did you review nursing and triage notes (agree or disagree)? Why? @ -[I reviewed and agree with nursing and triage notes] Were old charts reviewed (outside hosp., previous admission, EMS record, old EKG, old radiological studies, urgent care reports/EKG's, group home records)? Report findings @ -[No old charts were reviewed] Differential Diagnosis (chest pain, altered mental status, abdominal pain women, abdominal pain men, vaginal bleeding, weakness, fever, dyspnea, syncope, headache, dizziness, GI bleed, back pain, seizure, CVA, palpatations, mental health, musculoskeletal)? @ -[Differential Musculoskeletal Muscular strain, contusion, ligament sprain, fracture, arthritis, cellulitis, muscle spasm, nerve compression, acute intracranial hemorrhage, tumor.... This is not meant to be in all inclusive list EKG interpreted by me (3pts min.). @ -[As above] X-rays interpreted by me (1pt min.). @ -[None done] CT interpreted by me (1pt min.). @ -[I interpreted as above U/S interpreted by me (1pt. min.). @ -[None done] What testing was considered but not performed or refused? (CT, X-rays, U/S, la bs)? Why? @ -[None] What meds were considered but not given or refused? Why? @ -[None] Did you discuss the management of the patient with other professionals (professionals i.e. MELINDA Bender, MINE SHIFTER, lab, RT, psych nurse, director social welfare, gas meter repair supervisor, teacher, juvenile probation officer, ed case manager)? Give summary @ -[No] Was smoking cessation discussed for >3mins.? @ -[No] Was critical care preformed (if so, how long)? @ -[No] Were there social determinants of health that impacted care today? How? (Homelessness, low income, unemployed, alcoholism, drug addiction, transportation, low edu. Level, literacy, decrease access to med. care, retirement, rehab)? @ -[No] Was there de-escalation of care discussed even if they declined (Discuss DNR or withdrawal of care, Hospice)? DNR status @ -[No] What co-morbidities impacted this encounter? (DM, HTN, Smoking, COPD, CAD, Cancer, CVA, ARF, Chemo, Hep., AIDS, mental health diagnosis, sleep apnea, morbid obesity)? @ -[None] Was patient admitted / discharged? Hospital course, mention meds given and route, prescriptions, significant lab abnormalities, going to OR and other pertinent info. @ -[Patient is 68-year-old woman who is taking blood thinners and had ground-level fall with head injury. She had CT to rule out acute intracranial bleeding then was stable for discharge. Undiagnosed new problem with uncertain prognosis? @ -[No] Drug Therapy requiring intensive monitoring for toxicity (Heparin, Nitro, Insulin, Cardizem)? @ -[No] Were any procedures done? @ -[No] Diagnosis/symptom? @ -[Fall injury Acute nasal abrasion Acute closed head injury Patient on blood thinners Acute, or Chronic, or Acute on Chronic? @ -[Acute Uncomplicated (without systemic symptoms) or Complicated (systemic symptoms)? @ -[Uncomplicated Side effects of treatment? @ -[No] Exacerbation, Progression, or Severe Exacerbation? @ -[No] Poses a threat to life or bodily function? How? (Chest pain, USA, ID, pneumonia, PE, COPD, DKA, ARF, appy, cholecystitis, CVA, Diverticulitis, Homicidal, Suicidal, threat to staff... and all critical care pts) @ -[No] - Lab Data Result diagrams: 06/03/23 18:20 06/03/23 18:55 Lab Results 06/03/23 06/03/23 06/03/23 Range/Units 18:20 18:55 19:03 WBC 8.6 (3.8-10.6) k/uL RBC 4.45 (3.80-5.40) m/uL Hgb 12.4 (11.4-16.0) gm/dL Hct 38.8 (34.0-46.0) % MCV 87.2 (80.0-100.0) fL MCH 27.9 (25.0-35.0) pg MCHC 32.0 (31.0-37.0) g/dL RDW 13.6 (11.5-15.5) % Plt Count 230 (150-450) k/uL MPV 7.0 Neutrophils % 67 % Lymphocytes % 21 % Monocytes % 5 % Eosinophils % 5 % Basophils % 0 % Neutrophils # 5.7 (1.3-7.7) k/uL Lymphocytes # 1.8 (1.0-4.8) k/uL Monocytes # 0.5 (0-1.0) k/uL Eosinophils # 0.5 (0-0.7) k/uL Basophils # 0.0 (0-0.2) k/uL Hypochromasia Slight PT 10.4 (10.0-12.5) sec INR 0.9 (<1.2) APTT 25.2 (22.0-30.0) sec Sodium 136 L (137-145) mmol/L Potassium 5.3 H (3.5-5.1) mmol/L Chloride 109 H (98-107) mmol/L Carbon Dioxide 24 (22-30) mmol/L Anion Gap 3 mmol/L BUN 19 H (7-17) mg/dL Creatinine 0.88 (0.52-1.04) mg/dL Est GFR (CKD-EPI)AfAm 78 (>60 ml/min/1.73 sqM) Est GFR (CKD-EPI)NonAf 67 (>60 ml/min/1.73 sqM) Glucose 98 (74-99) mg/dL Calcium 8.5 (8.4-10.2) mg/dL Total Bilirubin 0.7 (0.2-1.3) mg/dL AST 29 (14-36) U/L ALT 11 (4-34) U/L Alkaline Phosphatase 97 (38-126) U/L Total Protein 6.2 L (6.3-8.2) g/dL Albumin 3.4 L (3.5-5.0) g/dL - EKG Data -: EKG Interpreted by [facility] EKG shows normal: sinus rhythm, axis (Normal), intervals (Normal), QRS complexes (Normal), ST-T waves (Normal) Rate: normal (Rate 61 bpm) Interpretation: normal EKG Disposition Clinical Impression: Fall, Head injury, acute, 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
--- NOTE | 2023-06-03 18:57 | CT ---
EXAMINATION TYPE: CT brain martin bob con DATE OF EXAM: 06/03/2023 COMPARISON: None HISTORY: Fall on thinners. CT DLP: 1367.3 mGycm Automated exposure control for dose reduction was used. TECHNIQUE: CT scan of the head and cervical spine are performed without contrast. FINDINGS Findings: Head CT: Ventricles, basal cisterns and sulci over convexities within normal limits and there is no mass, mass effect or shift of midline structures. No abnormal density is seen throughout the brain parenchyma and there is no acute intra or extra-axia l hemorrhage. Posterior fossa including the brainstem, fourth ventricle and cerebellar pontine angles are grossly n ormal. The intraorbital contents appear normal and symmetric. Visualized paranasal sinuses are well aerated. CT cervical spine: Craniovertebral junction relationships and prevertebral soft tissues are normal. There are postsurgical changes of laminectomy from C2/3 through C7/T1. There is posterior metallic fu daniel. The cervical vertebral segments are normal in height and there is no acute fracture. There is a slight retrolisthesis C5 on C6. There is moderate degenerative disc disease at C5-6 level where there is moderate disc space narrowing and spondylosis. Remaining disc spaces are well-maintain ed.. Is no significant bony encroachment of the spinal canal. Is mild bony neural foraminal encroachment a t C3-4 on the left. The paraspinal soft tissues unremarkable. IMPRESSION: 1. Head CT: No acute bleed or mass effect. 2. CT cervical spine: No acute trauma. Extensive postsurgical changes as described above.
[2023-06-03 19:13] LABS: ALT 11 U/L (4-34); African American GFR (CKD) 78 (>60 ml/min/1.73 sqM); Albumin 3.4 g/dL (3.5-5.0); Alkaline Phosphatase 97 U/L (38-126); Anion Gap 3 mmol/L; Blood Urea Nitrogen 19 mg/dL (7-17); Calcium 8.5 mg/dL (8.4-10.2); Carbon Dioxide 24 mmol/L (22-30); Chloride 109 mmol/L (98-107); Glucose 98 mg/dL (74-99); Non-African American GFR(CKD) 67 (>60 ml/min/1.73 sqM); Sodium 136 mmol/L (137-145); Total Bilirubin 0.7 mg/dL (0.2-1.3)
[2023-06-03 19:14] LABS: Potassium 5.3 mmol/L (3.5-5.1)
[2023-06-03 19:15] LABS: AST 29 U/L (14-36); Total Protein 6.2 g/dL (6.3-8.2)
[2023-06-03 19:34] LABS: INR 0.9 (<1.2); Partial Thromboplastin Time 25.2 sec (22.0-30.0); Prothrombin Time 10.4 sec (10.0-12.5)
[2023-06-03] MEDS: HYDROcodone/APAP 5-325MG 1 EACH TAB PO STA (19:37)
[2023-06-03] MEDS: BACITRACIN OINT 1 EACH PACKET TOPICAL ONE (20:00)
[2023-06-03 20:22] VITALS: BP 130/66; PULSE 66; RESP 16
== END 2023-06-03 20:54 | disposition home or self-care (01) ==
LOC: EC 17:28
DX: S00.31XA Abrasion of nose, initial encounter (principal); I11.0 Hypertensive heart disease with heart failure; I50.9 Heart failure, unspecified; Z88.0 Allergy status to penicillin; W05.0XXA Fall from non-moving wheelchair, initial encounter; Y92.410 Unspecified street and highway as the place of occurrence of the external cause
CPT/HCPCS: 36415; 70450; 72125; 80053; 85025; 85610; 85730; 93005; 99285

== ENCOUNTER 2023-06-13 00:13 | Emergency (ER) | payer OTHER ==
[2023-06-13 00:53] LABS: Basophils # (A) 0.1 k/uL (0-0.2); Basophils % (A) 1 %; Eosinophils # (A) 0.4 k/uL (0-0.7); Eosinophils % (A) 5 %; HCT 36.2 % (34.0-46.0); HGB 11.6 gm/dL (11.4-16.0); Lymphocytes # (A) 2.8 k/uL (1.0-4.8); Lymphocytes % (A) 33 %; MCH 27.8 pg (25.0-35.0); MCHC 31.9 g/dL (31.0-37.0); MCV 86.9 fL (80.0-100.0); Mean Platelet Volume 7.1; Monocytes # (A) 0.6 k/uL (0-1.0); Monocytes % (A) 7 %; Neutrophils # (A) 4.5 k/uL (1.3-7.7); Neutrophils % (A) 53 %; Platelet Count 241 k/uL (150-450); RBC 4.17 m/uL (3.80-5.40); RDW 13.7 % (11.5-15.5); WBC 8.5 k/uL (3.8-10.6)
[2023-06-13 01:15] LABS: African American GFR (CKD) 75 (>60 ml/min/1.73 sqM); Anion Gap 5 mmol/L; Blood Urea Nitrogen 19 mg/dL (7-17); Carbon Dioxide 23 mmol/L (22-30); Chloride 106 mmol/L (98-107); Glucose 105 mg/dL (74-99); Non-African American GFR(CKD) 65 (>60 ml/min/1.73 sqM); Potassium 4.4 mmol/L (3.5-5.1); Sodium 134 mmol/L (137-145)
[2023-06-13 01:24] LABS: NT-Pro-B-Type Natriuretic Pept 692 pg/mL
--- NOTE | 2023-06-13 01:37 | ED ---
General Adult HPI - General Chief complaint: Extremity Injury, Lower Stated complaint: RIGHT LOWER EXT PAIN Time Seen by Provider: 06/13/23 00:29 Source: patient, EMS, RN notes reviewed, old records reviewed Mode of arrival: EMS Limitations: no limitations - History of Present Illness Initial comments: Patient is a 68-year-old female presents emergency department complaining of acute on chronic lower extremity edema. States have been more swollen lately. She states this is more recent however when you ask her if she does state that she always has swollen legs and is more or less bedbound with the ability to move around her home with a walker. Does have a history of CHF. Denies any history of known DVTs as far she is aware. Endorses a chronic venous stasis ulcer on the right lower extremity. Initially states right leg seems to be more swollen but then admits that both legs are equally swollen. Lives at home with her . Presents for further evaluation at this time. Denies any worsening shortness of breath or chest pain. Denies any abdominal pain, nausea, vomiting. No other acute complaints at this time. Believes she is taking her medications as prescribed. Follows up with Dr. Garcia. - Related Data Previous Rx's Medication Instructions Recorded Furosemide [Lasix] 20 mg PO DAILY #7 tablet 04/03/23 Cephalexin [Keflex] 500 mg PO Q12HR 7 Days #14 cap 06/13/23 Sulfamethox-Tmp 800-160Mg [Bactrim 1 tab PO Q12HR 7 Days #14 tab 06/13/23 DS 800-160 mg] Allergies Allergy/AdvReac Type Severity Reaction Status Date / Time Penicillins AdvReac Unknown Verified 06/03/23 17:38 Childhood Review of Systems ROS Statement: Those systems with pertinent positive or pertinent negative responses have been documented in the HPI. Review of Systems: CONST: Denies fever EYES: Denies blurry vision ENT: Denies nasal congestion C/V: Denies Chest pain RESP: Denies shortness of breath GI: Denies abdominal pain : Denies dysuria SKIN: Endorses right lower extremity venous stasis ulcer, chronic MSK: Endorses leg swelling NEURO: Denies headache ROS Other: All systems not noted in ROS Statement are negative. Past Medical History Past Medical History: Heart Failure, Hypertension History of Any Multi-Drug Resistant Organisms: None Reported Past Surgical History: Appendectomy, Cholecystectomy, Hernia Repair Additional Past Surgical History / Comment(s): neck surgery Past Psychological History: No Psychological Hx Reported Smoking Status: Never smoker Past Alcohol Use History: None Reported Past Drug Use History: None Reported General Exam - General Exam Comments Initial Comments: General: Appears in no acute distress.. Patient is obese. HEAD: Normal with no signs of head trauma. EYES: PERRLA, EOMI, conjunctiva normal, no discharge. ENT: Hearing grossly intact, normal oropharynx. RESPIRATORY: Clear breath sounds bilaterally. No wheezes, rales, or rhonchi. C/V: Regular rate and rhythm. S1 and S2 auscultated, trickle bilateral lower extremity pitting edema, peripheral pulses 2+ and intact throughout ABD: Abd is soft, nontender, nondistended EXT: Normal range of motion, no obvious deformity SKIN: Slight erythema around a small approximate nickel size venous stasis ulcer on the right lower extremity. No obvious purulent discharge, fluctuance, induration. NEURO: Alert and oriented x 4. Limitations: no limitations Course Vital Signs 06/13/23 06/13/23 06/13/23 00:15 01:49 02:04 Temperature 97.1 F L Pulse Rate 64 117 H 81 Respiratory 18 19 18 Rate Blood Pressure 92/71 115/97 108/89 O2 Sat by Pulse 95 100 98 Oximetry 06/13/23 02:33 Temperature 97.8 F Pulse Rate Respiratory Rate Blood Pressure O2 Sat by Pulse Oximetry Medical Decision Making - Medical Decision Making Was pt. sent in by a medical professional or institution (, PA, ARTIFICIAL INSEMINATOR, urgent care, hospital, or snf...) When possible be specific @ -No Did you speak to anyone other than the patient for history (EMS, parent, family, police, friend...)? What history was obtained from this source @ -No Did you review nursing and triage notes (agree or disagree)? Why? @ -I reviewed and agree with nursing and triage notes Were old charts reviewed (outside hosp., previous admission, EMS record, old EKG, old radiological studies, urgent care reports/EKG's, snf records)? Report findings @ -No old charts were reviewed Differential Diagnosis (chest pain, altered mental status, abdominal pain women, abdominal pain men, vaginal bleeding, weakness, fever, dyspnea, syncope, headache, dizziness, GI bleed, back pain, seizure, CVA, palpatations, mental health, musculoskeletal)? @ -DVT, cellulitis, chronic lower extremity edema. This list is not all inclusive. EKG interpreted by me (3pts min.). @ -As above X-rays interpreted by me (1pt min.). @ -Chest x-ray reveals no obvious acute cardiopulmonary process. CT interpreted by me (1pt min.). @ -None done U/S interpreted by me (1pt. min.). @ -Lower extremity duplex ultrasounds negative for DVT. What testing was considered but not performed or refused? (CT, X-rays, U/S, labs)? Why? @ -None What meds were considered but not given or refused? Why? @ -None Did you discuss the management of the patient with other professionals (professionals i.e. , PA, ARTIFICIAL INSEMINATOR, lab, RT, psych nurse, director of social media marketing, equipment operat0r, teacher, senior escrow officer, director case)? Give summary @ -No Was smoking cessation discussed for >3mins.? @ -No Was critical care preformed (if so, how long)? @ -No Were there social determinants of health that impacted care today? How? (Homelessness, low income, unemployed, alcoholism, drug addiction, transportation, low edu. Level, literacy, decrease access to med. care, shelter, rehab)? @ -No Was there de-escalation of care discussed even if they declined (Discuss DNR or withdrawal of care, Hospice)? DNR status @ -No What co-morbidities impacted this encounter? (DM, HTN, Smoking, COPD, CAD, Cancer, CVA, ARF, Chemo, Hep., AIDS, mental health diagnosis, sleep apnea, morbid obesity)? @ -None Was patient admitted / discharged? Hospital course, mention meds given and route, prescriptions, significant lab abnormalities, going to OR and other pertinent info. @ -Patient presents with bilateral lower extremity acute on chronic edema. See ms to be more or less chronic for the patient but she states it may have been more worse lately. Has noticed a wound on her right lower extremity which is chronic for her. States she is having some intermittent discomfort as well but currently is resting comfortably. Exam is relatively unremarkable other than the lower extremity pitting edema. Venous stasis wound may have mild erythema around it but no obvious signs of fluctuance or purulent discharge. Vital signs are within acceptable limits. I discussed with the patient and we will obtain lower extremity venous duplex ultrasounds as well as a chest x-ray and basic workup. Patient was in agreement this plan. EKG shows normal sinus rhythm with frequent PVCs.Imaging is unremarkable. No evidence of DVT on ultrasound. Labs are also within acceptable limits. BNP is not significantly elevated. At this time, I updated the patient. I did offer admission for possible placement as she states she does occasionally need help at home but she declines this as she does not want to be placed in rehab or evaluated. States she lives at home with her who can help take care of herself. Therefore patient will be discharged home with wheelchair van in the morning. We will cover her empirically for cellulitis in the right lower extremity with Bactrim and Keflex. She was in agreement this plan. Tetanus updated. I will provide the patient with a prescription for Bactrim, Keflex. I instructed the patient to follow up with their PCP in the next 1-3 days.. I explained that the patient should return to the emergency department if they experience any worsening symptoms. Strict return precautions were discussed with the patient. The patient expressed understanding of these instructions. I answered all questions that the patient had. The patient was discharged home in good condition with their prescriptions and follow up information. Undiagnosed new problem with uncertain prognosis? @ -No Drug Therapy requiring intensive monitoring for toxicity (Heparin, Nitro, Insulin, Cardizem)? @ -No Were any procedures done? @ -No Diagnosis/symptom? @ -Leg edema, venous stasis ulcer Acute, or Chronic, or Acute on Chronic? @ -Chronic Uncomplicated (without systemic symptoms) or Complicated (systemic symptoms)? @ -Uncomplicated Side effects of treatment? @ -None Exacerbation, Progression, or Severe Exacerbation] @ -No Poses a threat to life or bodily function? @ -Unlikely - Lab Data Result diagrams: 06/13/23 00:41 06/13/23 00:41 Lab Results 06/13/23 06/13/23 06/13/23 Range/Units 00:41 00:41 00:41 WBC 8.5 (3.8-10.6) k/uL RBC 4.17 (3.80-5.40) m/uL Hgb 11.6 (11.4-16.0) gm/dL Hct 36.2 (34.0-46.0) % MCV 86.9 (80.0-100.0) fL MCH 27.8 (25.0-35.0) pg MCHC 31.9 (31.0-37.0) g/dL RDW 13.7 (11.5-15.5) % Plt Count 241 (150-450) k/uL MPV 7.1 Neutrophils % 53 % Lymphocytes % 33 % Monocytes % 7 % Eosinophils % 5 % Basophils % 1 % Neutrophils # 4.5 (1.3-7.7) k/uL Lymphocytes # 2.8 (1.0-4.8) k/uL Monocytes # 0.6 (0-1.0) k/uL Eosinophils # 0.4 (0-0.7) k/uL Basophils # 0.1 (0-0.2) k/uL Sodium 134 L (137-145) mmol/L Potassium 4.4 (3.5-5.1) mmol/L Chloride 106 (98-107) mmol/L Carbon Dioxide 23 (22-30) mmol/L Anion Gap 5 mmol/L BUN 19 H (7-17) mg/dL Creatinine 0.90 (0.52-1.04) mg/dL Est GFR (CKD-EPI)AfAm 75 (>60 ml/min/1.73 sqM) Est GFR (CKD-EPI)NonAf 65 (>60 ml/min/1.73 sqM) Glucose 105 H (74-99) mg/dL Calcium 9.0 (8.4-10.2) mg/dL NT-Pro-B Natriuret Pep 692 pg/mL Urine Color Light Yellow Urine Appearance Clear (Clear) Urine pH 6.0 (5.0-8.0) Ur Specific [place] 1.019 (1.001-1.035) Urine Protein Negative (Negative) Urine Glucose (UA) Negative (Negative) Urine Ketones Negative (Negative) Urine Blood Negative (Negative) Urine Nitrite Negative (Negative) Urine Bilirubin Negative (Negative) Urine Urobilinogen <2.0 (<2.0) mg/dL Ur Leukocyte Esterase Small H (Negative) Urine RBC 1 (0-5) /hpf Urine WBC 8 H (0-5) /hpf Ur Squamous Epith Cells 4 (0-4) /hpf - EKG Data -: EKG Interpreted by Me EKG Comments: 12-lead Electrocardiogram Interpretation Note EKG was reviewed and interpreted by myself. 12-lead ECG performed at 0045 is interpreted by me as revealing normal sinus rhythm with frequent PVCs at a rate of 105 beats per minute. [place] is normal. QRS duration is 90 ms, QTc is 413 ms. There were no ST or T wave abnormalities to suggest myocardial ischemia or injury. R wave progression across the precordium was satisfactory. By my interpretation this EKG is non-diagnostic for acute ischemia. Disposition Clinical Impression: Venous stasis ulcer, Leg edema Disposition: HOME SELF-CARE Condition: Good Instructions (If sedation given, give patient instructions): Leg Edema (ED) Prescriptions: Sulfamethox-Tmp 800-160Mg [Bactrim DS 800-160 mg] 1 tab PO Q12HR 7 Days #14 tab Cephalexin [Keflex] 500 mg PO Q12HR 7 Days #14 cap Is patient prescribed a controlled substance at d/c from ED?: No Referrals: None,Stated [Primary Care Provider] - 1-2 days Time of Disposition: 02:01
--- NOTE | 2023-06-13 01:53 | US ---
EXAM: US Duplex Bilateral Lower Extremities Veins CLINICAL HISTORY: US Reason: edema TECHNIQUE: Real-time duplex ultrasound scan of the bilateral lower extremity veins integrating B-mode two-dimensional vascular structure, Doppler spectral analysis, color flow Doppler imaging and compression. COMPARISON: No relevant prior studies available. FINDINGS: Right deep veins: Unremarkable. No DVT in the right common femoral, femoral, proximal deep femoral or popliteal veins. The veins demonstrate normal color flow, are normally compressible, with normal phasic flow and/or augmentation response. Right superficial veins: Unremarkable. No thrombus in the visualized right great saphenous vein. Left deep veins: Unremarkable. No DVT in the left common femoral, femoral, proximal deep femoral or popliteal veins. The veins demonstrate normal color flow, are normally compressible, with normal phasic flow and/or augmentation response. Left superficial veins: Unremarkable. No thrombus in the visualized left great saphenous vein. Soft tissues: No acute findings. No popliteal cyst. IMPRESSION: Negative bilateral lower extremity venous duplex ultrasound. No evidence of DVT.
--- NOTE | 2023-06-13 01:55 | XR ---
EXAM: XR Chest, 2 Views CLINICAL HISTORY: XR Reason: leg edema TECHNIQUE: Frontal and lateral views of the chest. COMPARISON: CT chest from December 06, 2021 FINDINGS: Lungs: Unremarkable. No consolidation. Pleural space: Unremarkable. No pneumothorax. Heart: The cardiac silhouette is enlarged. Mediastinum: Unremarkable. Normal mediastinal contour. Bones/joints: Moderate multilevel osteophytosis throughout the thoracic spine. Instrumentation and the cervical spine. No acute fracture. Upper abdomen: There is no pneumoperitoneum under the diaphragm. IMPRESSION: Mild cardiomegaly without evidence of edema or acute focal infiltrate.
[2023-06-13 02:04] LABS: Appearance,Urine Clear (Clear); Bilirubin,Urine Negative (Negative); Blood,Urine Negative (Negative); Color,Urine Light Yellow; Glucose,Urine (UA) Negative (Negative); Ketones,Urine Negative (Negative); Leukocyte Esterase,Urine Small (Negative); Nitrite,Urine Negative (Negative); Protein,Urine Negative (Negative); RBC,Urine 1 /hpf (0-5); Specific Gravity,Urine 1.019 (1.001-1.035); Squamous Epithelial Cell,Urine 4 /hpf (0-4); Urobilinogen,Urine <2.0 mg/dL (<2.0); WBC,Urine 8 /hpf (0-5)
[2023-06-13] MEDS: SULFAMETHOX-TMP 800-160MG 1 EACH TAB PO STA (02:19)
[2023-06-13] MEDS: ACETAMINOPHEN TAB 500 MG TAB PO STA (02:19)
[2023-06-13] MEDS: ALPRAZolam 0.25 MG TAB PO STA (02:20)
[2023-06-13] MEDS: CEPHALEXIN 500 MG CAP PO STA (02:20)
[2023-06-13] MEDS: DIPH,PERTUS(ACELL)TETVAC-LF 0.5 ML VIAL IM ONE (02:30)
[2023-06-13 03:04] VITALS: TEMP 97.8
[2023-06-13 09:39] VITALS: BP 121/87; PULSE 60; RESP 20
== END 2023-06-13 09:15 | disposition home or self-care (01) ==
LOC: EC 00:13
DX: I83.019 Varicose veins of right lower extremity with ulcer of unspecified site (principal); R60.0 Localized edema; I11.0 Hypertensive heart disease with heart failure; I50.9 Heart failure, unspecified; Z23 Encounter for immunization; Z88.0 Allergy status to penicillin
CPT/HCPCS: 36415; 71046; 80048; 81001; 83880; 85025; 90471; 90715; 93005; 93970; 99285

== ENCOUNTER 2023-07-01 20:29 | Emergency (ER) | payer OTHER ==
[2023-07-01 21:08] VITALS: BP 96/60; PULSE 74; RESP 18; TEMP 97.6
--- NOTE | 2023-07-01 21:47 | CT ---
EXAMINATION TYPE: CT brain martin bob con DATE OF EXAM: 07/01/2023 COMPARISON: 06/03/2023 HISTORY: fall, no LOC CT DLP: 1375.9 mGycm Automated exposure control for dose reduction was used. TECHNIQUE: CT scan of the head and cervical spine are performed without contrast. FINDINGS Head CT: Ventricles, basal cisterns and sulci over the convexities within normal limits and there is no mass e ffect or shift of midline structures. No abnormal density is seen throughout the brain parenchyma and there is no acute intra or extra-axia l hemorrhage. The posterior fossa including the brainstem, fourth ventricle and cerebellar pontine angles appear gr ossly normal. Intraorbital contents appear normal and symmetric. There are mild chronic inflammatory changes in the maxillary sinuses with mucous retention cysts or p olyps. The calvarium is intact. CT cervical spine: The craniovertebral junction relationships and prevertebral soft tissues are normal. There is a wide laminectomy from C3 through T1 with posterior metallic fusion. The cervical vertebral segments are normal in height and there is no fracture. There is a slight retrolisthesis of C5 on C6. There is moderate disc space narrowing and spondylosis at C5-6 indicating mild degenerative disease. There is mild degenerative disease at the C3-4, C4-5 an d C6-7 levels. There is no bony encroachment of the cervical ngiha Impression 1. No acute bleed or mass effect intracranially. 2. Calvarium intact. 3. No evidence of acute trauma to the cervical spine. There are extensive postsurgical changes as maye cribed above. There is no interval change compared to previous.
--- NOTE | 2023-07-01 22:00 | ED ---
Fall HPI - General Chief Complaint: Fall Stated Complaint: Fall Time Seen by Provider: 07/01/23 20:55 Source: patient, EMS, RN notes reviewed, old records reviewed Mode of arrival: EMS - History of Present Illness Initial Comments: This is a 68-year-old female to the ER for evaluation today. Patient was today for evaluation regards to weakness debility with recent fall. Patient did hit her head on this fall complaining of headache and neck pain with nausea no vomiting. Patient is able to ambulate is able to move legs denies any significant pain in her legs but does admit to significant weakness weakness that she is struggled with for some time now. MD Complaint: fall, other (weakness) -: hour(s) Fall From: standing When Fall Occurred: 1-3 hours MEDICAL OFFICE RECEPTIONIST Fall Witnessed: yes, by family Place Fall Occurred: home Loss of Consciousness: none Prolonged Down Time?: no Symptoms Prior to Fall: none Location - Extremities: Left: Thigh, Right: Thigh Severity scale (1-10): 4 Quality: sharp Context: tripped/slipped Associated Symptoms: denies - Related Data Previous Rx's Medication Instructions Recorded Furosemide [Lasix] 20 mg PO DAILY #7 tablet 04/03/23 Cephalexin [Keflex] 500 mg PO Q12HR 7 Days #14 cap 06/13/23 Sulfamethox-Tmp 800-160Mg [Bactrim 1 tab PO Q12HR 7 Days #14 tab 06/13/23 DS 800-160 mg] Allergies Allergy/AdvReac Type Severity Reaction Status Date / Time Penicillins AdvReac Unknown Verified 07/01/23 20:40 Childhood Review of Systems ROS Statement: Those systems with pertinent positive or pertinent negative responses have been documented in the HPI. ROS Other: All systems not noted in ROS Statement are negative. Past Medical History Past Medical History: Heart Failure, Hypertension History of Any Multi-Drug Resistant Organisms: None Reported Past Surgical History: Appendectomy, Cholecystectomy, Hernia Repair Additional Past Surgical History / Comment(s): neck surgery Past Psychological History: No Psychological Hx Reported Smoking Status: Never smoker Past Alcohol Use History: None Reported Past Drug Use History: None Reported General Exam Limitations: no limitations General appearance: alert, in no apparent distress Head exam: Present: atraumatic, normocephalic, normal inspection Eye exam: Present: normal appearance, PERRL, EOMI. Absent: scleral icterus, conjunctival injection, periorbital swelling ENT exam: Present: normal exam, mucous membranes moist Neck exam: Present: normal inspection. Absent: tenderness, meningismus, lymphadenopathy Respiratory exam: Present: normal lung sounds bilaterally. Absent: respiratory distress, wheezes, rales, rhonchi, stridor Cardiovascular Exam: Present: regular rate, normal rhythm, normal heart sounds. Absent: systolic murmur, diastolic murmur, rubs, gallop, clicks GI/Abdominal exam: Present: soft, normal bowel sounds. Absent: distended, tenderness, guarding, rebound, rigid Extremities exam: Present: normal inspection, full ROM, normal capillary refill. Absent: tenderness, pedal edema, joint swelling, calf tenderness Back exam: Present: normal inspection Neurological exam: Present: alert, oriented X3, CN II-XII intact Psychiatric exam: Present: normal affect, normal mood Skin exam: Present: warm, dry, intact, normal color. Absent: rash Course Vital Signs 07/01/23 20:33 Temperature 97.6 F Pulse Rate 74 Respiratory 18 Rate Blood Pressure 96/60 O2 Sat by Pulse 100 Oximetry - Reevaluation(s) Reevaluation #1: 07/01/23 21:57 medical record is reviewed Reevaluation #2: 07/01/23 21:57 patient has no current complaints and feels well Reevaluation #3: 07/01/23 21:58 patient is informed of results and questions answered Reevaluation #4: Was pt. sent in by a medical professional or institution (, PA, SKIVER BLOCKERS, urgent care, hospital, or fdc...) When possible be specific @ -no Did you speak to anyone other than the patient for history (EMS, parent, family, police, friend...)? What history was obtained from this source @ -no Did you review nursing and triage notes (agree or disagree)? Why? @ -agree Are old charts reviewed (outside hosp., previous admission, EMS record, old EKG, old radiological studies, urgent care reports/EKG's, fdc records)? Report findings @ -yes Differential Diagnosis (chest pain, altered mental status, abdominal pain women, abdominal pain men, vaginal bleeding, weakness, fever, dyspnea, syncope, headache, dizziness, GI bleed, back pain, seizure, CVA, palpatations, mental health, musculoskeletal)? @ -prior EKG interpreted by me (3pts min.). @ -no X-rays interpreted by me (1pt min.). @ -no CT interpreted by me (1pt min.). @ -Yes negative for acute disease U/S interpreted by me (1pt. min.). @ -no What testing was considered but not performed or refused? (CT, X-rays, U/S, labs)? Why? @ -none What meds were considered but not given or refused? Why? @ -none Did you discuss the management of the patient with other professionals (erna marin i.e. , PA, SKIVER BLOCKERS, lab, RT, psych nurse, social services manager, unloader operator, teacher, botanical technical officer, rifle case repairer)? Give summary @ -no Was smoking cessation discussed for >3mins.? @ -no Was critical care preformed (if so, how long)? @ -no Were there social determinants of health that impacted care today? How? (Homelessness, low income, unemployed, alcoholism, drug addiction, transportation, low edu. Level, literacy, decrease access to med. care, custodial, rehab)? @ -none Was there de-escalation of care discussed even if they declined (Discuss DNR or withdrawal of care, Hospice)? DNR status @ -no What co-morbidities impacted this encounter? (DM, HTN, Smoking, COPD, CAD, Cancer, CVA, ARF, Chemo, Hep., AIDS, mental health diagnosis, sleep apnea, morbid obesity)? @ -none Was patient admitted / discharged? Hospital course, mention meds given and route, prescriptions, significant lab abnormalities, going to OR and other pertinent info. @ - 68 female to the ED after a fall with presentation of weakness and history of debility, patient was unable to get off the ground so presents to the ED also after hittting her head. Patient has pain control is able to bear weight and patient can be discharged home in no acute distress but does suffer from debility Discharge Undiagnosed new problem with uncertain prognosis? @ -no Drug Therapy requiring intensive monitoring for toxicity (Heparin, Nitro, Insulin, Cardizem)? @ -no Were any procedures done? @ -no Diagnosis/symptom? @ -Weakness with debility Acute, or Chronic, or Acute on Chronic? @ -Acute Uncomplicated (without systemic symptoms) or Complicated (systemic symptoms)? @ -Complicated Side effects of treatment? @ -no Exacerbation, Progression, or Severe Exacerbation? @ -exacerbation Poses a threat to life or bodily function? How? (Chest pain, [place], MS, pneumonia, PE, COPD, DKA, ARF, appy, cholecystitis, CVA, Diverticulitis, Homicidal, Suicidal, threat to staff... and all critical care pts) @ -yes extremes of age Reevaluation #5: Differential Weakness: Hypoglycemia, shock, sepsis, hyponatremia, anemia, infection, MS, ETOH, adverse medicine reaction, overdose, stroke, this is not meant to be an all-inclusive list. Medical Decision Making - Medical Decision Making 68 female to the ED after a fall with presentation of weakness and history of debility, patient was unable to get off the ground so presents to the ED also after hittting her head. Patient has pain control is able to bear weight and patient can be discharged home in no acute distress but does suffer from debility - Radiology Data Radiology results: report reviewed (CT brain Cspine is negative for acute disease), image reviewed Disposition Clinical Impression: Fall, Weakness, Debility Disposition: [facility]MITTED IP TO [facility] Condition: Fair Instructions (If sedation given, give patient instructions): Fall Prevention for Older Adults (ED) Is patient prescribed a controlled substance at d/c from ED?: No Referrals: None,Stated [Primary Care Provider] - 1-2 days Time of Disposition: 21:50
[2023-07-01] MEDS: HYDROmorphone 0.5 MG/0.5 ML SYRINGE IVP STA (22:17)
== END 2023-07-02 01:02 | disposition other institution (70) ==
LOC: EC 20:29
DX: R53.1 Weakness (principal); R53.81 Other malaise; Z88.0 Allergy status to penicillin; Z90.49 Acquired absence of other specified parts of digestive tract; W18.30XA Fall on same level, unspecified, initial encounter
CPT/HCPCS: 72125; 70450; 99285; 96374; J1170

== ENCOUNTER 2023-07-27 19:27 | Inpatient (IN) | payer OTHER ==
--- NOTE | 2023-07-27 20:01 | ED ---
SOB HPI - General Chief Complaint: Shortness of Breath Stated Complaint: Cough, Difficulty Breathing Time Seen by Provider: 07/27/23 19:30 Source: patient, EMS, RN notes reviewed Mode of arrival: EMS - History of Present Illness Initial Comments: 68-year-old female who is a former smoker but denies any history of asthma or COPD who states she has had shortness of breath on a dry cough for the past several days she denies any overt fevers chills or sweats. Per paramedics she demonstrated audible wheezes. She denies any palpitations she denies any peripheral edema she does have sores on her right leg she states. MD Complaint: shortness of breath, cough - Related Data Previous Rx's Medication Instructions Recorded Furosemide [Lasix] 20 mg PO DAILY #7 tablet 04/03/23 Cephalexin [Keflex] 500 mg PO Q12HR 7 Days #14 cap 06/13/23 Sulfamethox-Tmp 800-160Mg [Bactrim 1 tab PO Q12HR 7 Days #14 tab 06/13/23 DS 800-160 mg] Allergies Allergy/AdvReac Type Severity Reaction Status Date / Time Penicillins AdvReac Unknown Verified 07/27/23 19:40 Childhood Review of Systems ROS Statement: Those systems with pertinent positive or pertinent negative responses have been documented in the HPI. ROS Other: All systems not noted in ROS Statement are negative. Past Medical History Past Medical History: Heart Failure, Hypertension History of Any Multi-Drug Resistant Organisms: None Reported Past Surgical History: Appendectomy, Cholecystectomy, Hernia Repair Additional Past Surgical History / Comment(s): neck surgery Past Psychological History: No Psychological Hx Reported Smoking Status: Never smoker Past Alcohol Use History: None Reported Past Drug Use History: None Reported General Exam - General Exam Comments Initial Comments: Is a well-developed well-nourished awake alert oriented x 4 female General appearance: alert, anxious Head exam: Present: atraumatic, normocephalic, normal inspection Eye exam: Present: normal appearance, PERRL, EOMI. Absent: scleral icterus, conjunctival injection, periorbital swelling ENT exam: Present: normal exam, mucous membranes moist Neck exam: Present: normal inspection, full ROM, other (No stridor JVD or bruits). Absent: tenderness, meningismus, lymphadenopathy Respiratory exam: Present: normal lung sounds bilaterally, decreased breath sounds. Absent: respiratory distress, wheezes, rales, rhonchi, stridor Cardiovascular Exam: Present: regular rate, normal rhythm, normal heart sounds. Absent: systolic murmur, diastolic murmur, rubs, gallop, clicks GI/Abdominal exam: Present: soft, normal bowel sounds. Absent: distended, tenderness, guarding, rebound, rigid Extremities exam: Present: full ROM, normal capillary refill, pedal edema. Absent: tenderness, joint swelling, calf tenderness Back exam: Present: normal inspection Neurological exam: Present: alert, oriented X3, CN II-XII intact Psychiatric exam: Present: normal affect, normal mood Skin exam: Present: warm, dry, normal color, other (Healing wound seen on the anterior right lower leg). Absent: rash Course Vital Signs 07/27/23 07/27/23 19:34 23:12 Temperature 97.5 F L Pulse Rate 90 80 Respiratory 20 19 Rate Blood Pressure 116/69 115/76 O2 Sat by Pulse 97 96 Oximetry Medical Decision Making - Medical Decision Making Patient did present with complaints of shortness of breath and a cough. She did have an elevated D-dimer CT negative for evidence of PE. Elevated BNP 1460. The presentation appears to be consistent with bronchospasm and CHF. Patient will be admitted Case was discussed with Chicho Mathur covering for Dr. Kearney. Was pt. sent in by a medical professional or institution (, PA, [employer], urgent care, hospital, or longterm...) When possible be specific @ -No Did you speak to anyone other than the patient for history (EMS, parent, family, police, friend...)? What history was obtained from this source @ -Paramedics upon arrival Did you review nursing and triage notes (agree or disagree)? Why? @ -I reviewed and agree with nursing and triage notes Were old charts reviewed (outside hosp., previous admission, EMS record, old EKG, old radiological studies, urgent care reports/EKG's, longterm records)? Report findings @ -Old charts were reviewed Differential Diagnosis (chest pain, altered mental status, abdominal pain women, abdominal pain men, vaginal bleeding, weakness, fever, dyspnea, syncope, h eadache, dizziness, GI bleed, back pain, seizure, CVA, palpatations, mental health, musculoskeletal)? @ -Anemia, cough EKG interpreted by me (3pts min.). @ -As above EKG interpreted by me sinus rhythm with PVCs rate 88 [place] interval 175 QRS duration 88 QT/QTc 389/435 low voltage nonspecific anterior configuration X-rays interpreted by me (1pt min.). @ -X-ray interpreted by me no definitive acute process CT interpreted by me (1pt min.). @ -CT angiography no evidence of PE interpreted by me U/S interpreted by me (1pt. min.). @ -None done What testing was considered but not performed or refused? (CT, X-rays, U/S, labs)? Why? @ -None What meds were considered but not given or refused? Why? @ -None Did you discuss the management of the patient with other professionals (professionals i.e. , PA, [employer], lab, RT, psych nurse, high school social studies teacher, public area supervisor, teacher, quality officer, supervisor case loading)? Give summary @ -Chicho Cadet covering Dr. Kearney Was smoking cessation discussed for >3mins.? @ -No Was critical care preformed (if so, how long)? @ -No Were there social determinants of health that impacted care today? How? (Homelessness, low income, unemployed, alcoholism, drug addiction, transpor tation, low edu. Level, literacy, decrease access to med. care, custodial, rehab)? @ -No Was there de-escalation of care discussed even if they declined (Discuss DNR or withdrawal of care, Hospice)? DNR status @ -No What co-morbidities impacted this encounter? (DM, HTN, Smoking, COPD, CAD, Cancer, CVA, ARF, Chemo, Hep., AIDS, mental health diagnosis, sleep apnea, morbid obesity)? @ -Heart failure, hypertension] Was patient admitted / discharged? Hospital course, mention meds given and route, prescriptions, significant lab abnormalities, going to OR and other pertinent info. @ -Hospital course patient was admitted to the hospital for treatment of bronchospasm CHF Undiagnosed new problem with uncertain prognosis? @ -No Drug Therapy requiring intensive monitoring for toxicity (Heparin, Nitro, Insulin, Cardizem)? @ -No Were any procedures done? @ -No Diagnosis/symptom? @ -Acute CHF, acute bronchospasm, dyspnea Acute, or Chronic, or Acute on Chronic? @ -Acute Uncomplicated (without systemic symptoms) or Complicated (systemic symptoms)? @ -Complicated Side effects of treatment? @ -No Exacerbation, Progression, or Severe Exacerbation? @ -No Poses a threat to life or bodily function? How? (Chest pain, USA, DC, pneumonia, PE, COPD, DKA, ARF, appy, cholecystitis, CVA, Diverticulitis, Homicidal, Suicidal, threat to staff... and all critical care pts) @ -Potential, dyspnea, CHF - Lab Data Result diagrams: 07/27/23 20:09 07/27/23 20:09 Lab Results 07/27/23 07/27/23 07/27/23 Range/Units 20:09 20:09 20:09 WBC 10.9 H (3.8-10.6) k/uL RBC 4.45 (3.80-5.40) m/uL Hgb 11.8 (11.4-16.0) gm/dL Hct 38.9 (34.0-46.0) % MCV 87.3 (80.0-100.0) fL MCH 26.6 (25.0-35.0) pg MCHC 30.4 L (31.0-37.0) g/dL RDW 13.9 (11.5-15.5) % Plt Count 207 (150-450) k/uL MPV 7.7 Neutrophils % 54 % Lymphocytes % 28 % Monocytes % 6 % Eosinophils % 10 % Basophils % 1 % Neutrophils # 5.9 (1.3-7.7) k/uL Lymphocytes # 3.0 (1.0-4.8) k/uL Monocytes # 0.6 (0-1.0) k/uL Eosinophils # 1.1 H (0-0.7) k/uL Basophils # 0.1 (0-0.2) k/uL Hypochromasia Moderate PT 10.3 (10.0-12.5) sec INR 0.9 (<1.2) APTT 24.9 (22.0-30.0) sec D-Dimer 0.81 H (<0.60) mg/L FEU Sodium 136 L (137-145) mmol/L Potassium 4.5 (3.5-5.1) mmol/L Chloride 104 (98-107) mmol/L Carbon Dioxide 24 (22-30) mmol/L Anion Gap 8 mmol/L BUN 22 H (7-17) mg/dL Creatinine 0.83 (0.52-1.04) mg/dL Est GFR (CKD-EPI)AfAm 83 (>60 ml/min/1.73 sqM) Est GFR (CKD-EPI)NonAf 72 (>60 ml/min/1.73 sqM) Glucose 107 H (74-99) mg/dL Plasma Lactic Acid Harjinder (0.7-2.0) mmol/L Calcium 8.8 (8.4-10.2) mg/dL Magnesium 2.1 (1.6-2.3) mg/dL Total Bilirubin 0.3 (0.2-1.3) mg/dL AST 21 (14-36) U/L ALT 9 (4-34) U/L Alkaline Phosphatase 95 (38-126) U/L Troponin I (0.000-0.034) ng/mL NT-Pro-B Natriuret Pep 1460 pg/mL Total Protein 6.5 (6.3-8.2) g/dL Albumin 3.7 (3.5-5.0) g/dL Urine Color Urine Appearance (Clear) Urine pH (5.0-8.0) Ur Specific Hudgins (1.001-1.035) Urine Protein (Negative) Urine Glucose (UA) (Negative) Urine Ketones (Negative) Urine Blood (Negative) Urine Nitrite (Negative) Urine Bilirubin (Negative) Urine Urobilinogen (<2.0) mg/dL Ur Leukocyte Esterase (Negative) Urine RBC (0-5) /hpf Urine WBC (0-5) /hpf Ur Squamous Epith Cells (0-4) /hpf Urine Bacteria (None) /hpf Hyaline Casts (0-2) /lpf Urine Mucus (None) /hpf Influenza Type A (PCR) (Not Detectd) Influenza Type B (PCR) (Not Detectd) RSV (PCR) (Not Detectd) SARS-CoV-2 (PCR) (Not Detectd) 07/27/23 07/27/23 07/27/23 Range/Units 20:09 20:09 20:15 WBC (3.8-10.6) k/uL RBC (3.80-5.40) m/uL Hgb (11.4-16.0) gm/dL Hct (34.0-46.0) % MCV (80.0-100.0) fL MCH (25.0-35.0) pg MCHC (31.0-37.0) g/dL RDW (11.5-15.5) % Plt Count (150-450) k/uL MPV Neutrophils % % Lymphocytes % % Monocytes % % Eosinophils % % Basophils % % Neutrophils # (1.3-7.7) k/uL Lymphocytes # (1.0-4.8) k/uL Monocytes # (0-1.0) k/uL Eosinophils # (0-0.7) k/uL Basophils # (0-0.2) k/uL Hypochromasia PT (10.0-12.5) sec INR (<1.2) APTT (22.0-30.0) sec D-Dimer (<0.60) mg/L FEU Sodium (137-145) mmol/L Potassium (3.5-5.1) mmol/L Chloride (98-107) mmol/L Carbon Dioxide (22-30) mmol/L Anion Gap mmol/L BUN (7-17) mg/dL Creatinine (0.52-1.04) mg/dL Est GFR (CKD-EPI)AfAm (>60 ml/min/1.73 sqM) Est GFR (CKD-EPI)NonAf (>60 ml/min/1.73 sqM) Glucose (74-99) mg/dL Plasma Lactic Acid Harjinder 1.2 (0.7-2.0) mmol/L Calcium (8.4-10.2) mg/dL Magnesium (1.6-2.3) mg/dL Total Bilirubin (0.2-1.3) mg/dL AST (14-36) U/L ALT (4-34) U/L Alkaline Phosphatase (38-126) U/L Troponin I <0.012 (0.000-0.034) ng/mL NT-Pro-B Natriuret Pep pg/mL Total Protein (6.3-8.2) g/dL Albumin (3.5-5.0) g/dL Urine Color Urine Appearance (Clear) Urine pH (5.0-8.0) Ur Specific Hudgins (1.001-1.035) Urine Protein (Negative) Urine Glucose (UA) (Negative) Urine Ketones (Negative) Urine Blood (Negative) Urine Nitrite (Negative) Urine Bilirubin (Negative) Urine Urobilinogen (<2.0) mg/dL Ur Leukocyte Esterase (Negative) Urine RBC (0-5) /hpf Urine WBC (0-5) /hpf Ur Squamous Epith Cells (0-4) /hpf Urine Bacteria (None) /hpf Hyaline Casts (0-2) /lpf Urine Mucus (None) /hpf Influenza Type A (PCR) Not Detected (Not Detectd) Influenza Type B (PCR) Not Detected (Not Detectd) RSV (PCR) Not Detected (Not Detectd) SARS-CoV-2 (PCR) Not Detected (Not Detectd) 07/27/23 Range/Units 20:50 WBC (3.8-10.6) k/uL RBC (3.80-5.40) m/uL Hgb (11.4-16.0) gm/dL Hct (34.0-46.0) % MCV (80.0-100.0) fL MCH (25.0-35.0) pg MCHC (31.0-37.0) g/dL RDW (11.5-15.5) % Plt Count (150-450) k/uL MPV Neutrophils % % Lymphocytes % % Monocytes % % Eosinophils % % Basophils % % Neutrophils # (1.3-7.7) k/uL Lymphocytes # (1.0-4.8) k/uL Monocytes # (0-1.0) k/uL Eosinophils # (0-0.7) k/uL Basophils # (0-0.2) k/uL Hypochromasia PT (10.0-12.5) sec INR (<1.2) APTT (22.0-30.0) sec D-Dimer (<0.60) mg/L FEU Sodium (137-145) mmol/L Potassium (3.5-5.1) mmol/L Chloride (98-107) mmol/L Carbon Dioxide (22-30) mmol/L Anion Gap mmol/L BUN (7-17) mg/dL Creatinine (0.52-1.04) mg/dL Est GFR (CKD-EPI)AfAm (>60 ml/min/1.73 sqM) Est GFR (CKD-EPI)NonAf (>60 ml/min/1.73 sqM) Glucose (74-99) mg/dL Plasma Lactic Acid Harjinder (0.7-2.0) mmol/L Calcium (8.4-10.2) mg/dL Magnesium (1.6-2.3) mg/dL Total Bilirubin (0.2-1.3) mg/dL AST (14-36) U/L ALT (4-34) U/L Alkaline Phosphatase (38-126) U/L Troponin I (0.000-0.034) ng/mL NT-Pro-B Natriuret Pep pg/mL Total Protein (6.3-8.2) g/dL Albumin (3.5-5.0) g/dL Urine Color Colorless Urine Appearance Clear (Clear) Urine pH 5.5 (5.0-8.0) Ur Specific Hudgins 1.011 (1.001-1.035) Urine Protein Negative (Negative) Urine Glucose (UA) Negative (Negative) Urine Ketones Negative (Negative) Urine Blood Negative (Negative) Urine Nitrite Negative (Negative) Urine Bilirubin Negative (Negative) Urine Urobilinogen <2.0 (<2.0) mg/dL Ur Leukocyte Esterase Large H (Negative) Urine RBC 1 (0-5) /hpf Urine WBC 28 H (0-5) /hpf Ur Squamous Epith Cells 3 (0-4) /hpf Urine Bacteria Rare H (None) /hpf Hyaline Casts 9 H (0-2) /lpf Urine Mucus Rare H (None) /hpf Influenza Type A (PCR) (Not Detectd) Influenza Type B (PCR) (Not Detectd) RSV (PCR) (Not Detectd) SARS-CoV-2 (PCR) (Not Detectd) Disposition Clinical Impression: Congestive heart failure, Bronchospasm, PVCs (premature ventricular contractions), Elevated d-dimer, Elevated brain natriuretic peptide (BNP) level Disposition: ADMITTED IP TO THIS [facility] Condition: Stable Referrals: None,Stated [Primary Care Provider] - 1-2 days Time of Disposition: 23:35 Decision Date: 07/27/23 Decision Time: 23:35
[2023-07-27 20:27] LABS: Basophils # (A) 0.1 k/uL (0-0.2); Basophils % (A) 1 %; Eosinophils # (A) 1.1 k/uL (0-0.7); Eosinophils % (A) 10 %; HCT 38.9 % (34.0-46.0); HGB 11.8 gm/dL (11.4-16.0); Hypochromasia Moderate; Lymphocytes % (A) 28 %; MCH 26.6 pg (25.0-35.0); MCHC 30.4 g/dL (31.0-37.0); MCV 87.3 fL (80.0-100.0); Mean Platelet Volume 7.7; Monocytes # (A) 0.6 k/uL (0-1.0); Monocytes % (A) 6 %; Neutrophils # (A) 5.9 k/uL (1.3-7.7); Neutrophils % (A) 54 %; Platelet Count 207 k/uL (150-450); RBC 4.45 m/uL (3.80-5.40); RDW 13.9 % (11.5-15.5); WBC 10.9 k/uL (3.8-10.6)
[2023-07-27 20:50] LABS: ALT 9 U/L (4-34); AST 21 U/L (14-36); African American GFR (CKD) 83 (>60 ml/min/1.73 sqM); Albumin 3.7 g/dL (3.5-5.0); Alkaline Phosphatase 95 U/L (38-126); Anion Gap 8 mmol/L; Blood Urea Nitrogen 22 mg/dL (7-17); Calcium 8.8 mg/dL (8.4-10.2); Carbon Dioxide 24 mmol/L (22-30); Chloride 104 mmol/L (98-107); Glucose 107 mg/dL (74-99); Magnesium 2.1 mg/dL (1.6-2.3); Non-African American GFR(CKD) 72 (>60 ml/min/1.73 sqM); Potassium 4.5 mmol/L (3.5-5.1); Sodium 136 mmol/L (137-145); Total Bilirubin 0.3 mg/dL (0.2-1.3); Total Protein 6.5 g/dL (6.3-8.2)
[2023-07-27 20:51] LABS: INR 0.9 (<1.2); Partial Thromboplastin Time 24.9 sec (22.0-30.0); Prothrombin Time 10.3 sec (10.0-12.5)
[2023-07-27 20:57] LABS: NT-Pro-B-Type Natriuretic Pept 1460 pg/mL
--- NOTE | 2023-07-27 20:58 | XR ---
EXAMINATION TYPE: XR chest 2V DATE OF EXAM: 07/27/2023 8:23 PM CLINICAL INDICATION:Female, 68 years old with history of difficulty breathing; [facility] COMPARISON: 06/13/2023 TECHNIQUE: XR chest 2V. Frontal and lateral views of the chest.. FINDINGS: Lines/Tubes/Devices: EKG leads overlie the chest. No indwelling lines are seen. Heart/mediastinum: Heart appears mildly enlarged. Mediastinum appears stable. Normal mediastinal co ntours. Mildly tortuous aorta. Pulmonary vascularity: Not increased, Lungs/Pleura: There is no evidence of pleural effusion, focal consolidation, or pneumothorax. Musculoskeletal: No acute osseous abnormality demonstrated in the limits of the exam. Multilevel endp late spurring in the spine. Partially seen degenerative changes of the shoulders and fixation hardwar e at the cervicothoracic junction. Other findings: Stable mild asymmetric elevation of the right hemidiaphragm. No subdiaphragmatic free air. IMPRESSION: Overall stable exam. Cardiomegaly without acute cardiopulmonary abnormality.
[2023-07-27 21:19] LABS: Appearance,Urine Clear (Clear); Bacteria,Urine Rare /hpf; Bilirubin,Urine Negative (Negative); Blood,Urine Negative (Negative); Color,Urine Colorless; Glucose,Urine (UA) Negative (Negative); Hyaline Casts,Urine 9 /lpf (0-2); Ketones,Urine Negative (Negative); Leukocyte Esterase,Urine Large (Negative); Mucus,Urine Rare /hpf; Nitrite,Urine Negative (Negative); PH, Urine 5.5 (5.0-8.0); Protein,Urine Negative (Negative); RBC,Urine 1 /hpf (0-5); Specific Gravity,Urine 1.011 (1.001-1.035); Squamous Epithelial Cell,Urine 3 /hpf (0-4); Urobilinogen,Urine <2.0 mg/dL (<2.0); WBC,Urine 28 /hpf (0-5)
--- NOTE | 2023-07-27 23:02 | CT ---
EXAM: CT Angiography Chest With Intravenous Contrast CLINICAL HISTORY: ITS.REASON CT Reason: PE suspected TECHNIQUE: Axial computed tomographic angiography images of the chest with intravenous contrast. CTDI is 20.5 mGy and DLP is 608 mGy-cm. This CT exam was performed using one or more of the following dose reduction techniques: automated exposure control, adjustment of the mA and/or kV according to patient size, and/or use of iterative reconstruction technique. MIP reconstructed images were created and reviewed. COMPARISON: No relevant prior studies available. FINDINGS: Pulmonary arteries: Unremarkable. No pulmonary embolism. Aorta: Ectatic ascending aorta measures 4.5 cm. No thoracic aortic aneurysm. Lungs: Unremarkable. No mass. No consolidation. Pleural space: Unremarkable. No significant effusion. No pneumothorax. Heart: Cardiomegaly. No significant pericardial effusion. No evidence of RV dysfunction. Bones/joints: Degenerative changes of the spine. No acute fracture. No dislocation. Soft tissues: Unremarkable. Lymph nodes: Unremarkable. No enlarged lymph nodes. IMPRESSION: No acute findings in the visualized arteries of the chest.
[2023-07-27] MEDS: ALPRAZolam 0.25 MG TAB PO STA (23:09)
[2023-07-28] MEDS: FUROSEMIDE 10 MG/ML 4 ML VIAL IV SCH (00:20)
[2023-07-28] MEDS: SODIUM CHLORIDE 0.9% 1,000 ML IV SCH (00:25)
[2023-07-28] MEDS: MELATONIN 5 MG TABLET PO PRN (02:43)
[2023-07-28] MEDS: ACETAMINOPHEN TAB 325 MG TAB PO PRN (02:43)
[2023-07-28 08:26] VITALS: RESP 18
[2023-07-28] MEDS ORDERED: IPRATROPIUM-ALBUTEROL 3 ML NEB INHALATION PRN (09:48)
[2023-07-28] MEDS ORDERED: guaiFENesin-DM 100-10MG/5ML 10 ML CUP PO PRN (11:20)
--- NOTE | 2023-07-28 12:21 | P.HPIM ---
History of Present Illness H&P Date: 07/28/23 History of present illness; patient 68-year-old lady with past medical history significant for tobacco addiction who presented to the ER because of shortness of breath for the last few days. Patient stated that she has been having shortness of breath for the last few days. Shortness of breath upon exertion. Complaining of dry cough as well. There is no complaint of chest pain. Denies any fever or chills. No complaint of orthopnea or PND. There is complaint of swelling of feet. Patient was complaining of wheezing. Because of the symptoms, patient came to the ER Initial lab work done in the ER showed WBC 10.9, hemoglobin 11.8, platelet count 207, sodium 136, potassium 4.5, BUN 22, creatinine 0.83, glucose 107, lactate 1.2, calcium 8.8, AST 21, ALT 9, troponin 0.012 Urine analysis negative for UTI Influenza A not detected Influenza B not detected RSV not detected COVID-19 not detected EKG done in the ER showed heart rate of 88, no ST segment elevation or depression seen, no T-wave inversions seen. Chest x-ray done in the ER showed cardiomegaly without acute cardiopulmonary abnormality CTA chest negative for PE Patient admitted to internal medicine service REVIEW OF SYSTEMS: CONSTITUTIONAL: No fever, no malaise, no fatigue. HEENT: No recent visual problems or hearing problems. Denied any sore throat. CARDIOVASCULAR: As mentioned HPI PULMONARY: As mentioned HPI GASTROINTESTINAL: No diarrhea, no nausea, no vomiting, no abdominal pain. NEUROLOGICAL: No headaches, no weakness, no numbness. HEMATOLOGICAL: Denies any bleeding or petechiae. GENITOURINARY: Denies any burning micturition, frequency, or urgency. MUSCULOSKELETAL/RHEUMATOLOGICAL: Denies any joint pain, any muscle pain. ENDOCRINE: Denies any polyuria or polydipsia. The rest of the 14-point review of systems is negative. PHYSICAL EXAMINATION: GENERAL: The patient is alert and oriented x3, not in any acute distress. Well developed, well nourished. HEENT: Pupils are round and equally reacting to light. EOMI. No scleral icterus. No conjunctival pallor. Normocephalic, atraumatic. No pharyngeal erythema. No thyromegaly. CARDIOVASCULAR: S1 and S2 present. No murmurs, rubs, or gallops. PULMONARY: Chest is clear to auscultation, no wheezing or crackles. ABDOMEN: Soft, nontender, nondistended, normoactive bowel sounds. No palpable organomegaly. MUSCULOSKELETAL: No joint swelling or deformity. EXTREMITIES: No cyanosis, 1+ pitting edema lower extremities bilaterally NEUROLOGICAL: Gross neurological examination did not reveal any focal deficits. SKIN: No rashes. Assessment and plan Dyspnea. Acute bacterial bronchitis Acute CHF Tobacco addiction Monitor vital signs Monitor CBC Monitor CMP Continue telemetry monitoring Ordered 2D echo Strict I's and O's, daily weights Continue breathing treatment with DuoNeb and Symbicort Consult pulmonology Consult cardiology labs and medication were reviewed.. Continue same treatment. Continue with symptomatic treatment. Resume home medication. Monitor labs and vitals. DVT and GI prophylaxis. Further recommendations as per clinical course of the patient Dictation was produced using [employer]erate[employer] dictation software. please excuse any gr ammatical, word or spelling errors. Past Medical History Past Medical History: Heart Failure, Hypertension History of Any Multi-Drug Resistant Organisms: None Reported Past Surgical History: Appendectomy, Cholecystectomy, Hernia Repair Additional Past Surgical History / Comment(s): neck surgery Past Psychological History: No Psychological Hx Reported Smoking Status: Former smoker Past Alcohol Use History: None Reported Past Drug Use History: None Reported Medications and Allergies Home Medications Medication Instructions Recorded Confirmed Type Furosemide [Lasix] 20 mg PO DAILY #7 tablet 04/03/23 Rx Cephalexin [Keflex] 500 mg PO Q12HR 7 Days #14 cap 06/13/23 Rx Sulfamethox-Tmp 800-160Mg [Bactrim 1 tab PO Q12HR 7 Days #14 tab 06/13/23 Rx DS 800-160 mg] Allergies Allergy/AdvReac Type Severity Reaction Status Date / Time Penicillins AdvReac Unknown Verified 07/27/23 19:40 Childhood Physical Exam Vitals: Vital Signs Temp Pulse Pulse Resp BP BP Pulse Ox 07/28/23 07:14 97.4 F L 72 18 101/68 95 07/28/23 02:00 98.7 F 75 16 138/72 100 07/27/23 23:12 80 19 115/76 96 07/27/23 19:34 97.5 F L 90 20 116/69 97 Intake and Output 07/27/23 07/28/23 07/28/23 22:59 06:59 14:59 Output Total 1200 Balance -1200 Output: Urine 1200 Other: Weight 81.647 kg 102 kg Results CBC & Chem 7: 07/27/23 20:09 07/27/23 20:09 Labs: Abnormal Lab Results - Last 24 Hours (Table) 07/27/23 07/27/23 07/27/23 Range/Units 20:09 20:09 20:09 WBC 10.9 H (3.8-10.6) k/uL MCHC 30.4 L (31.0-37.0) g/dL Eosinophils # 1.1 H (0-0.7) k/uL D-Dimer 0.81 H (<0.60) mg/L FEU Sodium 136 L (137-145) mmol/L BUN 22 H (7-17) mg/dL Glucose 107 H (74-99) mg/dL Ur Leukocyte Esterase (Negative) Urine WBC (0-5) /hpf Urine Bacteria (None) /hpf Hyaline Casts (0-2) /lpf Urine Mucus (None) /hpf 07/27/23 Range/Units 20:50 WBC (3.8-10.6) k/uL MCHC (31.0-37.0) g/dL Eosinophils # (0-0.7) k/uL D-Dimer (<0.60) mg/L FEU Sodium (137-145) mmol/L BUN (7-17) mg/dL Glucose (74-99) mg/dL Ur Leukocyte Esterase Large H (Negative) Urine WBC 28 H (0-5) /hpf Urine Bacteria Rare H (None) /hpf Hyaline Casts 9 H (0-2) /lpf Urine Mucus Rare H (None) /hpf Thrombosis Risk Factor Assmnt - Choose All That Apply Any of the Below Risk Factors Present?: Yes Each Factor Represents 1 point: Obesity (BMI >25) Each Risk Factor Represents 2 Points: Age 61-74 years Thrombosis Risk Factor Assessment Total Risk Factor Score: 3 Thrombosis Risk Factor Assessment Level: Moderate Risk
[2023-07-28] MEDS: IPRATROPIUM-ALBUTEROL 3 ML NEB INHALATION SCH (13:23)
[2023-07-28] MEDS: methylPREDNISolone SOD SUCCI 40 MG/ML 1 ML VIAL IV SCH (13:25)
--- NOTE | 2023-07-28 13:25 | P.CRDCN ---
History of Present Illness Consult date: 07/28/23 Chief complaint: Shortness of breath and bilateral lower extremities edema History of present illness: The patient is a 68-year-old female patient with a past medical history significant for overweight and hypertension and extremely poor functional capacity where she is getting up and around using a walker as well as history of smoking. We consulted to see the patient because of congestive heart failure. The patient is a poor historian. She presented to the hospital because she has not been feeling well where she has been experiencing cough appears to be dry and not productive for any sputum with no fever and no chills but also she has been experiencing increasing in the shortness of breath with exertion as well as bilateral lower extremities edema but she is not sure if she gained any weight. No pain in the chest and no dizziness or lightheadedness and no feeling of heart racing or fluttering and no presyncope or syncope. Further investigation performed including chest x-ray came in to be unremarkable with chronic changes only with no acute abnormalities and also she underwent NT proBNP came in to be elevated. Troponin came in to be unremarkable. Renal function remains stable. Hemoglobin remains stable. The EKG showed a sinus mechanism with a Q wave in the anteroseptal leads and nonspecific ST and T wave abnormalities noted. The patient is not aware of any prior history of coronary artery disease or congestive heart failure or cardiac arrhythmia and she stated that she does not follow-up with any tree specialist regularly but I am not quite sure how reliable the information she is providing. The examination revealed regular rhythm with a distant heart sounds and systolic murmur at the right upper sternal border with bilateral expiratory wheezing and also severe bilateral lower extremities pitting edema. She was started on Lasix IV and she stated that she is feeling somewhat better Assessment Heart failure exacerbation with evidence of right and left heart failure of unknown etiology at this point History of smoking Multiple comorbid conditions including obesity and hypertension Extremely poor functional capacity Plan Acute coronary event was ruled out Continue the current dose of Lasix IV Continue monitoring the kidney function and electrolytes Further cardiac investigation including an echocardiogram Follow-up with the patient Past Medical History Past Medical History: Heart Failure, Hypertension History of Any Multi-Drug Resistant Organisms: None Reported Past Surgical History: Appendectomy, Cholecystectomy, Hernia Repair Additional Past Surgical History / Comment(s): neck surgery Past Psychological History: No Psychological Hx Reported Smoking Status: Former smoker Past Alcohol Use History: None Reported Past Drug Use History: None Reported Medications and Allergies Home Medications Medication Instructions Recorded Confirmed Type Furosemide [Lasix] 20 mg PO DAILY #7 tablet 04/03/23 07/28/23 Rx Acetaminophen Tab [Tylenol] 1,000 mg PO BID PRN 07/28/23 07/28/23 History Albuterol Nebulized [Ventolin 2.5 mg INHALATION RT-TID PRN 07/28/23 07/28/23 History Nebulized] Aspirin EC [Ecotrin] 325 mg PO DAILY 07/28/23 07/28/23 History Buprenorphine [Butrans 7.5 MCG/HR] 1 patch TRANSDERM TH 07/28/23 07/28/23 History Divalproex Sprinkle [Depakote 250 mg PO HS 07/28/23 07/28/23 History Sprinkle] Ergocalciferol [Vitamin D2 (1250 1,250 mcg PO WILEY 07/28/23 07/28/23 History Mcg = 29025 Iu)] Famotidine 40 mg PO AC-BRKFST 07/28/23 07/28/23 History Nystatin 100,000 Unit/gm Powd 1 applic TOPICAL BID PRN 07/28/23 07/28/23 History [Mycostatin Powder] PARoxetine [Paxil] 20 mg PO DAILY 07/28/23 07/28/23 History atenoloL [Atenolol] 25 mg PO BID 07/28/23 07/28/23 History clonazePAM [KlonoPIN] 0.25 mg PO BID 07/28/23 07/28/23 History Allergies Allergy/AdvReac Type Severity Reaction Status Date / Time Penicillins Allergy Rash/Hives Verified 07/28/23 12:51 Physical Exam Vitals: Vital Signs Temp Pulse Pulse Resp BP BP Pulse Ox 07/28/23 07:14 97.4 F L 72 18 101/68 95 07/28/23 02:00 98.7 F 75 16 138/72 100 07/27/23 23:12 80 19 115/76 96 07/27/23 19:34 97.5 F L 90 20 116/69 97 Intake and Output 07/27/23 07/28/23 07/28/23 22:59 06:59 14:59 Output Total 1200 Balance -1200 Output: Urine 1200 Other: Weight 81.647 kg 102 kg Results 07/27/23 20:09 04/20/24 20:09 Cardiac Enzymes 07/27/23 07/27/23 07/28/23 Range/Units 20:09 20:09 00:11 AST 21 (14-36) U/L Troponin I <0.012 <0.012 (0.000-0.034) ng/mL 07/28/23 Range/Units 02:34 AST (14-36) U/L Troponin I <0.012 (0.000-0.034) ng/mL Coagulation 07/27/23 Range/Units 20:09 PT 10.3 (10.0-12.5) sec APTT 24.9 (22.0-30.0) sec CBC 07/27/23 Range/Units 20:09 WBC 10.9 H (3.8-10.6) k/uL RBC 4.45 (3.80-5.40) m/uL Hgb 11.8 (11.4-16.0) gm/dL Hct 38.9 (34.0-46.0) % Plt Count 207 (150-450) k/uL Comprehensive Metabolic Panel 07/27/23 Range/Units 20:09 Sodium 136 L (137-145) mmol/L Potassium 4.5 (3.5-5.1) mmol/L Chloride 104 (98-107) mmol/L Carbon Dioxide 24 (22-30) mmol/L BUN 22 H (7-17) mg/dL Creatinine 0.83 (0.52-1.04) mg/dL Glucose 107 H (74-99) mg/dL Calcium 8.8 (8.4-10.2) mg/dL AST 21 (14-36) U/L ALT 9 (4-34) U/L Alkaline Phosphatase 95 (38-126) U/L Total Protein 6.5 (6.3-8.2) g/dL Albumin 3.7 (3.5-5.0) g/dL Current Medications Generic Name Dose Route Start Last Admin Trade Name Freq PRN Reason Stop Dose Admin Acetaminophen 650 mg 07/28/23 02:38 07/28/23 02:43 Acetaminophen Tab 325 Mg Tab PO 650 mg Q6HR PRN Administration Fever and/ or Pain Albuterol/Ipratropium 3 ml 07/28/23 09:48 Ipratropium-Albuterol 3 Ml Neb INHALATION RT-QID PRN Shortness Of Breath Or Wheezing Albuterol/Ipratropium 3 ml 07/28/23 12:00 Ipratropium-Albuterol 3 Ml Neb INHALATION RT-QID SHAJI Budesonide/Formoterol Fumarate 2 puff 07/28/23 20:00 Symbicort 160-4.5 Mcg Inhaler INHALATION RT-BID SHAJI Furosemide 40 mg 07/27/23 23:45 07/28/23 00:20 Furosemide 10 Mg/Ml 4 Ml Vial IV 40 mg Q12H SHAJI Administration Guaifenesin/Dextromethorphan 10 ml 07/28/23 11:20 Guaifenesin-Dm 100-10mg/5ml 10 Ml Cup PO Q6HR PRN Cough Sodium Chloride 1,000 mls @ 20 mls/hr 07/27/23 23:45 07/28/23 00:25 Saline 0.9% IV 20 mls/hr .Q24H SHAJI Administration Melatonin 5 mg 07/28/23 02:38 07/28/23 02:43 Melatonin 5 Mg Tablet PO 5 mg HS PRN Administration Insomnia Methylprednisolone Sodium Succinate 40 mg 07/28/23 11:30 Methylprednisolone Sod Succi 40 Mg/Ml 1 Ml Vial IV Q8HR SHAJI Intake and Output 07/27/23 07/28/23 07/28/23 22:59 06:59 14:59 Output Total 1200 Balance -1200 Output: Urine 1200 Other: Weight 81.647 kg 102 kg 07/27/23 20:09 07/27/23 20:09
--- NOTE | 2023-07-28 13:43 | P.CNPUL ---
History of Present Illness Consult date: 07/28/23 Requesting physician: Dejah Kearney Reason for consult: dyspnea, cough Chief complaint: Shortness of breath, cough, congestion History of present illness: This is a pleasant 68-year-old female patient with a known history of heart failure, anxiety, hypertension, lifelong non-smoker. She presented to the emergency room yesterday with complaints of dry nonproductive cough for several days with some associated shortness of breath. She states for 1 week she has had a dry cough. She has had no fever or chills. She did have some audible wheezing. Chest x-ray reveals cardiomegaly without acute cardiopulmonary process. CT angiogram revealed no evidence of pulmonary embolism. Lung ash were unremarkable. No mass no consolidation. White count 10.9. Hemoglobin 11.8. Platelets 207. D-dimer 0.81. Sodium 136. Potassium 4.5. Bicarb 24. BUN 22. Creatinine 0.83. Glucose 107. Troponins were negative x 3. proBNP 1460. Viral screen negative. She is seen today in consultation on the regular medical floor. He is currently resting comfortably in bed. Awake and alert in no acute distress. She is maintaining good O2 saturations mid 90s on room air. She has an occasional dry cough. She does have some end expiratory wheeze. She is afebrile. Hemodynamically stable. Review of Systems REVIEW OF SYSTEMS: CONSTITUTIONAL: Denies any recent significant weight loss or weight gain. EYES: Denies change in vision. EARS, NOSE, MOUTH, THROAT: Denies headaches, denies sore throat. CARDIOVASCULAR: Denies chest pain, palpitations or syncopal episodes. RESPIRATORY: Positive for shortness of breath, cough, congestion no hemoptysis. GASTROINTESTINAL: Denies change in appetite, denies abdominal pain GENITOURINARY: Denies hematuria, denies infections. MUSKULOSKELETAL: Denies pain, denies swelling. INTEGUMENTARY: Denies rash, denies eczema. NEUROLOGICAL: Denies recent memory loss, no recent seizure activity. PSYCHIATRIC: Denies anxiety, denies depression. HEMATOLOGIC/LYMPHATIC: Denies anemia, denies enlarged lymph nodes. Past Medical History Past Medical History: Heart Failure, Hypertension History of Any Multi-Drug Resistant Organisms: None Reported Past Surgical History: Appendectomy, Cholecystectomy, Hernia Repair Additional Past Surgical History / Comment(s): neck surgery Past Psychological History: No Psychological Hx Reported Smoking Status: Former smoker Past Alcohol Use History: None Reported Past Drug Use History: None Reported Medications and Allergies Home Medications Medication Instructions Recorded Confirmed Type Furosemide [Lasix] 20 mg PO DAILY #7 tablet 04/03/23 07/28/23 Rx Acetaminophen Tab [Tylenol] 1,000 mg PO BID PRN 07/28/23 07/28/23 History Albuterol Nebulized [Ventolin 2.5 mg INHALATION RT-TID PRN 07/28/23 07/28/23 History Nebulized] Aspirin EC [Ecotrin] 325 mg PO DAILY 07/28/23 07/28/23 History Buprenorphine [Butrans 7.5 MCG/HR] 1 patch TRANSDERM TH 07/28/23 07/28/23 History Divalproex Sprinkle [Depakote 250 mg PO HS 07/28/23 07/28/23 History Sprinkle] Ergocalciferol [Vitamin D2 (1250 1,250 mcg PO WILEY 07/28/23 07/28/23 History Mcg = 17920 Iu)] Famotidine 40 mg PO AC-BRKFST 07/28/23 07/28/23 History Nystatin 100,000 Unit/gm Powd 1 applic TOPICAL BID PRN 07/28/23 07/28/23 History [Mycostatin Powder] PARoxetine [Paxil] 20 mg PO DAILY 07/28/23 07/28/23 History atenoloL [Atenolol] 25 mg PO BID 07/28/23 07/28/23 History clonazePAM [KlonoPIN] 0.25 mg PO BID 07/28/23 07/28/23 History Allergies Allergy/AdvReac Type Severity Reaction Status Date / Time Penicillins Allergy Rash/Hives Verified 07/28/23 12:51 Physical Exam Vitals: Vital Signs Temp Pulse Pulse Resp BP BP Pulse Ox 07/28/23 13:32 80 07/28/23 13:23 77 07/28/23 07:14 97.4 F L 72 18 101/68 95 07/28/23 02:00 98.7 F 75 16 138/72 100 07/27/23 23:12 80 19 115/76 96 07/27/23 19:34 97.5 F L 90 20 116/69 97 Intake and Output 07/27/23 07/28/23 07/28/23 22:59 06:59 14:59 Output Total 1200 Balance -1200 Output: Urine 1200 Other: Weight 81.647 kg 102 kg GENERAL EXAM: Alert, does not 68-year-old female, on room air, resting in bed, comfortable in no apparent distress. HEAD: Normocephalic. EYES: Normal reaction of pupils, equal size. NOSE: Clear with pink turbinates. THROAT: No erythema or exudates. NECK: No masses, no JVD. CHEST: No chest wall deformity. LUNGS: Equal air entry with bilateral end expiratory wheeze. CVS: S1 and S2 normal with no audible murmur, regular rhythm. ABDOMEN: No hepatosplenomegaly, normal bowel sounds, no guarding or rigidity. SPINE: No scoliosis or deformity SKIN: No rashes CENTRAL NERVOUS SYSTEM: No focal deficits, tone is normal in all 4 extremities. EXTREMITIES: There is no peripheral edema. No clubbing, no cyanosis. Peripheral pulses are intact. Results - Laboratory Findings CBC and BMP: 07/27/23 20:09 07/27/23 20:09 PT/INR, D-dimer PT 10.3 sec (10.0-12.5) 07/27/23 20:09 INR 0.9 (<1.2) 07/27/23 20:09 D-Dimer 0.81 mg/L FEU (<0.60) H 07/27/23 20:09 Abnormal lab findings: Abnormal Labs 07/27/23 07/27/23 07/27/23 20:09 20:09 20:09 WBC 10.9 H MCHC 30.4 L Eosinophils # 1.1 H D-Dimer 0.81 H Sodium 136 L BUN 22 H Glucose 107 H Ur Leukocyte Esterase Urine WBC Urine Bacteria Hyaline Casts Urine Mucus 07/27/23 20:50 WBC MCHC Eosinophils # D-Dimer Sodium BUN Glucose Ur Leukocyte Esterase Large H Urine WBC 28 H Urine Bacteria Rare H Hyaline Casts 9 H Urine Mucus Rare H - Diagnostic Findings Chest x-ray: image reviewed CT scan - chest: image reviewed Assessment and Plan Assessment: Shortness of breath with dry cough suspect bronchitis versus mild exacerbation of asthma Lifelong non-smoker History of anxiety History of heart failure Hypertension Plan: The patient was seen and evaluated Chest x-ray, CT scan, labs and medications reviewed Add DuoNeb inhalations Add Symbicort Add Solu-Medrol Check a procalcitonin Stable and on room air We will continue to follow and make further recommendations based on her clinical status I have personally seen and examined the patient, performed the documentation and the assessment and plan as written. Number of minutes spent on the visit: 20.
[2023-07-28] MEDS: FUROSEMIDE 20 MG TAB PO SCH (14:18)
[2023-07-28] MEDS ORDERED: SYMBICORT 80-4.5 MCG INHALER INHALATION SCH (20:00)
[2023-07-28] MEDS: SYMBICORT 160-4.5 MCG INHALER INHALATION SCH (20:30)
[2023-07-29 08:20] VITALS: BP 118/73; TEMP 98.2
[2023-07-29 08:36] LABS: Basophils # (A) 0.01 X 10*3/uL (0.00-0.10); Basophils % (A) 0.1 %; Eosinophils # (A) 0.01 X 10*3/uL (0.04-0.35); Eosinophils % (A) 0.1 %; HCT 38.6 % (37.2-46.3); Lymphocytes # (A) 0.88 X 10*3/uL (0.90-5.00); Lymphocytes % (A) 8.3 %; MCH 26.4 pg (27.0-32.0); MCHC 31.1 g/dL (32.0-37.0); Monocytes # (A) 0.13 X 10*3/uL (0.20-1.00); Monocytes % (A) 1.2 %; NRBC Per 100 WBC 0 X 10*3/uL (0.00-0.01); Neutrophils # (A) 9.59 X 10*3/uL (1.80-7.70); Neutrophils % (A) 90.1 %; Platelet Count 243 X 10*3/uL (140-440); RBC 4.54 X 10*6/uL (4.10-5.20); RDW 13.9 % (11.5-14.5); WBC 10.64 X 10*3/uL (4.50-10.00)
[2023-07-29 09:00] LABS: ALT 7 U/L (8-44); AST 13 U/L (13-35); Albumin/Globulin Ratio 1.48 Ratio (1.60-3.17); Alkaline Phosphatase 127 U/L (41-126); Blood Urea Nitrogen 20.2 mg/dL (9.0-27.0); Calcium 9.1 mg/dL (8.7-10.3); Carbon Dioxide 25.8 mmol/L (21.6-31.8); Chloride 96 mmol/L (96-109); Globulin 2.7 g/dL (1.6-3.3); Glucose 140 mg/dL (70-110); Potassium 4.4 mmol/L (3.5-5.5); Sodium 136 mmol/L (135-145); Total Bilirubin 0.4 mg/dL (0.3-1.2); Total Protein 6.7 g/dL (6.2-8.2)
[2023-07-29] MEDS: FUROSEMIDE 20 MG TAB PO SCH (09:23)
[2023-07-29] MEDS ORDERED: ACETAMINOPHEN TAB 500 MG TAB PO PRN (09:32)
[2023-07-29 09:52] VITALS: PULSE 68
[2023-07-29] MEDS: clonazePAM 0.5 MG TAB PO SCH (10:01)
--- NOTE | 2023-07-29 11:16 | P.PN ---
Subjective HISTORY OF PRESENT ILLNESS: The patient is a 68-year-old female patient with a past medical history significant for overweight and hypertension and extremely poor functional capacity where she is getting up and around using a walker as well as history of smoking. We consulted to see the patient because of congestive heart failure. The patient is a poor historian. She presented to the hospital because she has not been feeling well where she has been experiencing cough appears to be dry and not productive for any sputum with no fever and no chills but also she has been experiencing increasing in the shortness of breath with exertion as well as bilateral lower extremities edema but she is not sure if she gained any weight. No pain in the chest and no dizziness or lightheadedness and no feeling of heart racing or fluttering and no presyncope or syncope. Further investigation performed including chest x-ray came in to be unremarkable with chronic changes only with no acute abnormalities and also she underwent NT proBNP came in to be elevated. Troponin came in to be unremarkable. Renal function remains stable. Hemoglobin remains stable. The EKG showed a sinus mechanism with a Q wave in the anteroseptal leads and nonspecific ST and T wave abnormalities noted. The patient is not aware of any prior history of coronary artery disease or congestive heart failure or cardiac arrhythmia and she stated that she does not follow-up with any lead painter regularly but I am not quite sure how reliable the information she is providing. The examination revealed regular rhythm with a distant heart sounds and systolic murmur at the right upper sternal border with bilateral expiratory wheezing and also severe bilateral lower extremities pitting edema. She was started on Lasix IV and she stated that she is feeling somewhat better 07/29/2023 Patient examined this morning the bedside. There is no family present. Patient is currently confused. Patient is yelling for her who is not currently in the room. Patient continually yelling "get this whore out of my house". She denies chest pain or pressure. Denies any shortness of breath. Vital signs are stable. PHYSICAL EXAM: VITAL SIGNS: Reviewed. GENERAL: Well-developed in no acute distress. NECK: Supple. No JVD or thyromegaly LUNGS: Respirations even and unlabored. Lungs essentially clear to auscultation bilaterally. HEART: Regular rate and rhythm. S1 and S2 heard. EXTREMITIES: Normal range of motion. No clubbing or cyanosis. Peripheral pulses intact. Bilateral lower extremity edema noted ASSESSMENT: Possible mild heart failure, type unknown, currently euvolemic History of smoking Multiple comorbid conditions including obesity and hypertension Extremely poor functional capacity Altered mental status including hallucinations PLAN: Primary medicine to address altered mental status Discontinue IV Lasix Begin oral Lasix 20 mg daily Patient is currently stable from a cardiac standpoint with no further inpatient recommendations Patient to follow-up postdischarge with Dr. Varela We will sign off. Please reconsult if needed. Nurse practitioner note has been reviewed by physician. Signing provider agrees with the documented findings, assessment, and plan of care documented by CASE PACKER as a scribe. Objective - Vital Signs Vital signs: Vital Signs Temp 98.2 F 07/29/23 08:00 Pulse 68 07/29/23 09:40 Resp 18 07/29/23 08:58 BP 118/73 07/29/23 08:00 Pulse Ox 94 L 07/29/23 08:00 FiO2 Intake & Output 07/28/23 07/29/23 07/29/23 18:59 06:59 18:59 Intake Total 60 Output Total 950 1350 Balance -950 -1350 60 Weight 104.5 kg Intake: Oral 60 Output: Urine 950 1350 Other: Voiding Method External Catheter External Catheter External Catheter - Labs CBC & Chem 7: 07/29/23 04:23 07/29/23 04:23 Labs: Abnormal Lab Results - Last 24 Hours (Table) 07/29/23 07/29/23 Range/Units 04:23 04:23 WBC 10.64 H (4.50-10.00) X 10*3/uL MCH 26.4 L (27.0-32.0) pg MCHC 31.1 L (32.0-37.0) g/dL Neutrophils # 9.59 H (1.80-7.70) X 10*3/uL Lymphocytes # 0.88 L (0.90-5.00) X 10*3/uL Monocytes # 0.13 L (0.20-1.00) X 10*3/uL Eosinophils # 0.01 L (0.04-0.35) X 10*3/uL Anion Gap 14.20 H (4.00-12.00) mmol/L BUN/Creatinine Ratio 20.20 H (12.00-20.00) Ratio Glucose 140 H (70-110) mg/dL ALT 7 L (8-44) U/L Alkaline Phosphatase 127 H (41-126) U/L Albumin/Globulin Ratio 1.48 L (1.60-3.17) Ratio
--- NOTE | 2023-07-29 11:31 | P.DS ---
Providers Date of admission: 07/27/23 23:35 Expected date of discharge: 07/29/23 Attending physician: Cookie Patel DO Consults: 07/28/23 09:52 Consult Physician Routine Consulting Provider: Isaías Parikh Consult Reason/Comments: COPD Do you want consulting provider notified?: Yes Primary care physician: Stated None Hospital Course: Assessment Acute asthma exacerbation Congestive heart failure, not in exacerbation Tobacco addiction Hospital Course: Patient 68-year-old lady with past medical history significant for tobacco addiction who presented to the ER because of shortness of breath for the last few days. Initial lab work done in the ER showed WBC 10.9, hemoglobin 11.8, platelet count 207, sodium 136, potassium 4.5, BUN 22, creatinine 0.83, glucose 107, lactate 1.2, calcium 8.8, AST 21, ALT 9, troponin 0.012 Urine analysis negative for UTI Influenza A not detected Influenza B not detected RSV not detected COVID-19 not detected EKG done in the ER showed heart rate of 88, no ST segment elevation or depression seen, no T-wave inversions seen. Chest x-ray done in the ER showed cardiomegaly without acute cardiopulmonary abnormality CTA chest negative for PE Patient admitted to internal medicine service Patient was seen in consultation by cardiology as well as pulmonology. Patient was having an asthma exacerbation was initiated on Symbicort as well as Solu- Medrol, then quickly returned to baseline with no evidence of wheezing on exam. She also returned to room air. Pulmonology recommended discharge with new medications for Symbicort, prednisone taper. Cardiology signed off on the patient as she was euvolemic. Patient should follow-up with primary care physician, cardiology, pulmonology on discharge. I discussed the case with patient's outpatient primary care team to go over the med rec on discharge. The following changes were agreed upon: Prednisone taper across 12 days starting at 40 mg, the addition of Symbicort to her medication regimen, the decrease of aspirin from 325 mg daily to 81 mg daily. I spent 45 minutes coordinating this patient's discharge Gen: In NAD, non-toxic HEENT: normocephalic, atraumatic, hearing acuity is intant, mucous membranes moist CVS: perfusing all extremities well, no pitting edema, Respiratory: symmetric chest expansion, no accessory muscle use, GI: soft, NTTP, ND, : no suprapubic tenderness, no CVA tenderness MSK/Derm: no rashes, cyanosis Neuro: CN II-XII intact, no motor weakness, Psych: cooperative, euthymic mood, judgment and insight is intact Patient Condition at Discharge: Good Plan - Discharge Summary New Discharge Prescriptions: New predniSONE [Deltasone] See Rx Instructions .ROUTE .COMPLEX #15 tab Budesonide-Formot 160-4.5 Mcg [Symbicort 160-4.5 Mcg Inhaler] 2 puff INHALATION RT-BID each Continue Furosemide [Lasix] 20 mg PO DAILY #7 tablet Famotidine 40 mg PO AC-BRKFST Ergocalciferol [Vitamin D2 (1250 Mcg = 45065 Iu)] 1,250 mcg PO WILEY Nystatin 100,000 Unit/gm Powd [Mycostatin Powder] 1 applic TOPICAL BID PRN PRN Reason: Skin Irritation PARoxetine [Paxil] 20 mg PO DAILY atenoloL 25 mg PO BID Acetaminophen Tab [Tylenol] 1,000 mg PO BID PRN PRN Reason: Pain clonazePAM [KlonoPIN] 0.25 mg PO BID Divalproex Sprinkle [Depakote Sprinkle] 250 mg PO HS Buprenorphine [Butrans 7.5 MCG/HR] 1 patch TRANSDERM TH Albuterol Nebulized [Ventolin Nebulized] 2.5 mg INHALATION RT-TID PRN PRN Reason: SOB/Wheezing/Cough Changed Aspirin EC [Ecotrin] 81 mg PO DAILY #0 Discharge Medication List Furosemide [Lasix] 20 mg PO DAILY #7 tablet 04/03/23 [Rx] Acetaminophen Tab [Tylenol] 1,000 mg PO BID PRN 07/28/23 [History] Albuterol Nebulized [Ventolin Nebulized] 2.5 mg INHALATION RT-TID PRN 07/28/23 [History] Buprenorphine [Butrans 7.5 MCG/HR] 1 patch TRANSDERM TH 07/28/23 [History] Divalproex Sprinkle [Depakote Sprinkle] 250 mg PO HS 07/28/23 [History] Ergocalciferol [Vitamin D2 (1250 Mcg = 54951 Iu)] 1,250 mcg PO WILEY 07/28/23 [History] Famotidine 40 mg PO AC-BRKFST 07/28/23 [History] Nystatin 100,000 Unit/gm Powd [Mycostatin Powder] 1 applic TOPICAL BID PRN 07/28/23 [History] PARoxetine [Paxil] 20 mg PO DAILY 07/28/23 [History] atenoloL 25 mg PO BID 07/28/23 [History] clonazePAM [KlonoPIN] 0.25 mg PO BID 07/28/23 [History] Aspirin EC [Ecotrin] 81 mg PO DAILY #0 07/29/23 [Rx] Budesonide-Formot 160-4.5 Mcg [Symbicort 160-4.5 Mcg Inhaler] 2 puff INHALATION RT-BID each 07/29/23 [Rx] predniSONE [Deltasone] See Rx Instructions .ROUTE .COMPLEX #15 tab 07/29/23 [Rx] Follow up Appointment(s)/Referral(s): Provider,KIM [NON-STAFF] - 1 Week Activity/Diet/Wound Care/Special Instructions: [facility] can transport on d/c if before 3p Discharge Disposition: HOME WITH HOME HEALTH SERVICES
[2023-07-29 12:09] VITALS: BMI 39.5
--- NOTE | 2023-07-29 13:48 | P.PN ---
Subjective Progress Note Date: 07/29/23 This is a pleasant 68-year-old female patient with a known history of heart failure, anxiety, hypertension, lifelong non-smoker. She presented to the emergency room yesterday with complaints of dry nonproductive cough for several days with some associated shortness of breath. She states for 1 week she has had a dry cough. She has had no fever or chills. She did have some audible wheezing. Chest x-ray reveals cardiomegaly without acute cardiopulmonary process. CT angiogram revealed no evidence of pulmonary embolism. Lung ash were unremarkable. No mass no consolidation. White count 10.9. Hemoglobin 11.8. Platelets 207. D-dimer 0.81. Sodium 136. Potassium 4.5. Bicarb 24. BUN 22. Creatinine 0.83. Glucose 107. Troponins were negative x 3. proBNP 1460. Viral screen negative. She is seen today in consultation on the regular medical floor. He is currently resting comfortably in bed. Awake and alert in no acute distress. She is maintaining good O2 saturations mid 90s on room air. She has an occasional dry cough. She does have some end expiratory wheeze. She is afebrile. Hemodynamically stable. The patient is seen today July 29, 2023 in follow-up on the regular medical floor. She is currently sitting up in bed. Awake and alert in no acute distress. She is maintaining O2 saturations in the 90s on room air. White count 10.6. Hemoglobin 12.0. Platelets 243. Sodium 136. Potassium 4.4. Bicarb 26. BUN 20. Creatinine 1.0. Glucose 140. Procalcitonin was negative at 0.05. She is continued on DuoNeb ventilations, Symbicort, oral diuretics and Solu-Medrol. Objective - Vital Signs Vital signs: Vital Signs Temp 98.2 F 07/29/23 08:00 Pulse 68 07/29/23 09:40 Resp 18 07/29/23 08:58 BP 118/73 07/29/23 08:00 Pulse Ox 94 L 07/29/23 08:00 FiO2 Intake & Output 07/28/23 07/29/23 07/29/23 18:59 06:59 18:59 Intake Total 60 Output Total 950 1350 Balance -950 -1350 60 Weight 104.5 kg 104.5 kg Intake: Oral 60 Output: Urine 950 1350 Other: Voiding Method External Catheter External Catheter External Catheter - Exam GENERAL EXAM: Alert, 68-year-old female, on room air, comfortable in no apparent distress. HEAD: Normocephalic. EYES: Normal reaction of pupils, equal size. NOSE: Clear with pink turbinates. THROAT: No erythema or exudates. NECK: No masses, no JVD. CHEST: No chest wall deformity. LUNGS: Equal air entry with no wheeze, rhonchi or dullness CVS: S1 and S2 normal with no audible murmur, regular rhythm. ABDOMEN: No hepatosplenomegaly, normal bowel sounds, no guarding or rigidity. SPINE: No scoliosis or deformity SKIN: No rashes CENTRAL NERVOUS SYSTEM: No focal deficits, tone is normal in all 4 extremities. EXTREMITIES: There is no peripheral edema. No clubbing, no cyanosis. Peripheral pulses are intact. - Labs CBC & Chem 7: 07/29/23 04:23 07/29/23 04:23 Labs: Abnormal Lab Results - Last 24 Hours (Table) 07/29/23 07/29/23 Range/Units 04:23 04:23 WBC 10.64 H (4.50-10.00) X 10*3/uL MCH 26.4 L (27.0-32.0) pg MCHC 31.1 L (32.0-37.0) g/dL Neutrophils # 9.59 H (1.80-7.70) X 10*3/uL Lymphocytes # 0.88 L (0.90-5.00) X 10*3/uL Monocytes # 0.13 L (0.20-1.00) X 10*3/uL Eosinophils # 0.01 L (0.04-0.35) X 10*3/uL Anion Gap 14.20 H (4.00-12.00) mmol/L BUN/Creatinine Ratio 20.20 H (12.00-20.00) Ratio Glucose 140 H (70-110) mg/dL ALT 7 L (8-44) U/L Alkaline Phosphatase 127 H (41-126) U/L Albumin/Globulin Ratio 1.48 L (1.60-3.17) Ratio Assessment and Plan Assessment: Shortness of breath with dry cough suspect bronchitis versus mild exacerbation of asthma Lifelong non-smoker History of anxiety History of heart failure Hypertension Plan: The patient was seen and evaluated Labs and medications reviewed Stable and on room air Cleared for discharge Complete a prednisone taper Continue Symbicort Procalcitonin negative, no antibiotics needed This patient was seen independently by the pulmonary nurse practitioner addressing pulmonary issues I have personally seen and examined the patient, performed the documentation and the assessment and plan as written. Number of minutes spent on the visit: 23.
--- NOTE | 2023-07-29 18:11 | CA ---
Transthoracic Echo Report Name: Larissa Heard Age: 68 Gender: F : 1955 Exam Date: 07/29/2023 09:41 Exam Location: [facility] Ht (in): 64 Wt (lb): 224 Ordering Physician: Darren Metz MD Attending/Referring Phys: Manager Custom Florinda Ames RCS Procedure CPT: Indications: SHORTNESS OF BREATH Cardiac Hx: Technical Quality: Very technically difficult study Contrast 1: Total Dose (mL): Contrast 2: Total Dose (mL): MEASUREMENTS (Male / Female) Normal Values 2D ECHO LV Diastolic Diameter PLAX 4.4 cm 4.2 - 5.9 / 3.9 - 5.3 cm LV Systolic Diameter PLAX 4.2 cm IVS Diastolic Thickness 0.8 cm 0.6 - 1.0 / 0.6 - 0.9 cm LVPW Diastolic Thickness 0.9 cm 0.6 - 1.0 / 0.6 - 0.9 cm LV Relative Wall Thickness 0.4 RV Internal Dim ED PLAX 2.5 cm LVOT Diameter 2.5 cm LA Volume 73.1 cm??? 18 - 58 / 22 - 52 cm??? LA Volume Index 33.4 cm???/m??? 16 - 28 cm???/m??? Ascending Aorta Diameter 4.6 cm DOPPLER AV Peak Velocity 246.7 cm/s AV Peak Gradient 24.3 mmHg AV Mean Velocity 195.5 cm/s AV Mean Gradient 16.4 mmHg AV Velocity Time Integral 57.7 cm PV Peak Velocity 66.5 cm/s PV Peak Gradient 1.8 mmHg FINDINGS Left Ventricle Left ventricular ejection fraction is estimated at 45-50 %. Left ventricular wall thickness normal. Left ventricle not well visualized. Right Ventricle Right ventricle not well visualized. Unable to estimate the right ventricular systolic pressure. Right Atrium Right atrium not well visualized. Left Atrium Mildly increased left atrial volume. Mitral Valve Structurally normal mitral valve. No evidence for mitral valve prolapse. No mitral stenosis. Trace mitral regurgitation. Aortic Valve Aortic valve not well visualized. No aortic stenosis. No aortic regurgitation. Tricuspid Valve Structurally normal tricuspid valve. No tricuspid stenosis. No tricuspid regurgitation. Pulmonic Valve Pulmonic valve not well visualized. No pulmonic stenosis. No pulmonic regurgitation. Pericardium No pericardial effusion. Aorta Aortic annulus normal. Moderate to severely enlarged ascending aorta. CONCLUSIONS Technically difficult study , suboptimal acoustic windows Left ventricular ejection fraction in the lower limits of normal enlarged ascending aorta Previewed by: Dr. Dusty Velez MD (Electronically Signed) Final Date: 29 July 2023 18:10
[2023-07-29] MEDS ORDERED: DIVALPROEX SPRINKLE 125 MG CAP.SPRINK PO SCH (21:00)
[2023-07-29] MEDS ORDERED: atenoloL 25 MG TAB PO SCH (21:00)
[2023-07-30] MEDS ORDERED: FAMOTIDINE 20 MG TAB PO SCH (07:30)
[2023-07-30] MEDS ORDERED: PARoxetine 20 MG TAB PO SCH (09:00)
[2023-07-30] MEDS ORDERED: ASPIRIN 325 MG TAB PO SCH (09:00)
[2023-08-01] MEDS ORDERED: NON FORMULARY DRUG (Buprenorphine [Butrans 7.5 Mcg/Hr] 7.5 MCG/HOUR Patch) TRANSDERM SCH (09:00)
[2023-08-04] MEDS ORDERED: ERGOCALCIFEROL 1,250 MCG (50,000 IU) CAPSULE PO SCH (09:00)
== END 2023-07-29 12:58 | disposition home health service (06) | DRG 202 ==
LOC: EC 19:27 → 4SSUR 23:35
PROVIDERS: ADMIT Internal Medicine; ATTEND Internal Medicine
DX: J45.901 Unspecified asthma with (acute) exacerbation (principal); R44.3 Hallucinations, unspecified; I11.0 Hypertensive heart disease with heart failure; I50.9 Heart failure, unspecified; E66.9 Obesity, unspecified; Z68.39 Body mass index [BMI] 39.0-39.9, adult; I49.3 Ventricular premature depolarization; F41.9 Anxiety disorder, unspecified; Z87.891 Personal history of nicotine dependence; Z11.52 Encounter for screening for COVID-19; Z79.899 Other long term (current) drug therapy; Z88.0 Allergy status to penicillin
CPT/HCPCS: 36415; 71046; 71275; 80053; 81001; 83605; 83735; 83880; 84145; 84484; 85025; 85379; 85610; 85730; 87636; 93005; 93306; 94640; 94760; 96374; 99285